=== PATIENT | male | born 1995 | race Caucasian/White ===

== ENCOUNTER 2024-04-23 02:07 | Inpatient (IN) | payer OTHER, SELFPAY ==
[2024-04-23] VITALS (10 sets, daily range): BP systolic 136–210; BP diastolic 81–166; PULSE 83–135; RESP 16–22; TEMP 36.4–36.8; O2SAT 96–100; BMI 25.8
--- NOTE | ~2024-04-23 | CT_ITS ---
CLINICAL HISTORY: Change mental status, elevated BP, tackled CT head without contrast Comparison: None Findings: No intra-axial mass, midline shift, hydrocephalus, or acute hemorrhage. No significant atrophy-like change or white matter disease. There is no sinus or mastoid fluid. The orbits are within normal limits. No skull fracture. IMPRESSION: 1. No acute intracranial findings. This document has been electronically signed by: Jax Elmore MD on 04/23/2024 05:32:48
--- NOTE | ~2024-04-23 | CT_ITS ---
CLINICAL HISTORY: Fall, neck pain, R O fracture CT cervical spine without contrast Comparison: None Findings: Normal vertebral body alignment. No significant degenerative change. No acute fractures or dislocations. Visualized intracranial contents are unremarkable. No cervical fluid collections or masses. Lung apices are clear. IMPRESSION: No acute findings. This document has been electronically signed by: Jax Elmore MD on 04/23/2024 05:35:59
--- NOTE | 2024-04-23 02:34 | ED_ITS ---
HPI - Neuro Symptoms/Deficit General Chief Complaint: Psychiatric Symptoms Stated Complaint: HTN & crisis, Asperger's and Aniexty PD-PC Time Seen by Provider: 04/23/24 02:33 Source: patient Mode of arrival: EMS Limitations: other (Pressured , disorganized speech, flight of ideas) History of Present Illness ED Provider: Dr. Bill Munoz HPI Narrative: 28-year-old male with history of Asperger's and anxiety who was brought to emergency department by ambulance on a Section 12. The patient has very disorganized and paranoid speech. He has flight of ideas. He does not answer questions directly. The following information was obtained from the Section 12 filled out by police magistrate at the patient's home. ?Has not slept in 5 days, out of touch with reality, destructive around house, triggered by , while outside of baseline behavior according to mom. Jumped on top of car when ambulance came? The patient told me that he has been hospitalized for psychiatric reasons in the past but can not tell me where he was hospitalized. Patient states that he was tackled by the police and that is how he got the abrasions to his lower extremities. He was not certain if he hit his head. He does not know when he got his last tetanus shot Related Data Allergies Allergy/AdvReac Type Severity Reaction Status Date / Time sumatriptan [From IMITREX] AdvReac Intermediate SEROTONIN Verified 04/23/24 02:39 SYNDROME Review of Systems 2 Review of Systems: Yes Unobtainable due to mental condition PMFSH Social History Social History Alcohol intake: never Smoked in Last 30 Days: No Use of substances other than those prescribed or required for medical reasons: No Advance Directives: No Advance Directives Information Provided: Yes Physical Exam 2 Vital Signs: Vital Signs: Last Vital Signs Temp 98.2 F 04/23/24 02:23 Pulse 101 H 04/23/24 04:00 Resp 20 04/23/24 05:18 BP 150/81 H 04/23/24 05:18 Pulse Ox 100 04/23/24 05:18 O2 Del Method Room Air 04/23/24 05:18 BMI result Body Mass Index 25.8 Vital signs revealed an elevated blood pressure of 205/109, elevated heart rate of 112. Exam: General: Awake, alert, agitated, pressured speech, paranoid ideation, Head: Normocephalic, atraumatic EENT: PERRL, Lids normal, sclera normal, conjunctiva normal, nose normal , ears normal, throat without erythema or exudates Neck: Supple, no adenopathy Lung: breath sounds symmetric, no wheezing, rales or rhonchi Chest: symmetric movement, nontender Heart: Tachycardia with regular rhythm, normal S1, S2 no murmurs or rubs Abdomen: soft, non-tender, nondistended, normal bowel sounds Back: no vertebral tenderness, no CVAT Extremities: no deformities, patient has a abrasions and bruising on his knees he was he was suspect happened from him jumping on a car when the ambulance in the police arrived at his home. He moves all extremities symmetrically Neuro: Awake, oriented to person, cranial nerves 2-12 intact, strength 5/5 symmetric Medications Administered Discontinued Medications Generic Name Dose Route Start Last Admin Trade Name Freq PRN Reason Stop Dose Admin Bacitracin 1 appl 04/23/24 03:34 04/23/24 03:44 Bacitracin Oint 0.9 Gm Packet TOPICAL 04/23/24 03:35 1 appl ONCE ONE Administration Protocol Diphenhydramine HCl 25 mg 04/23/24 08:33 04/23/24 08:59 Diphenhydramine Hcl 50 Mg/Ml Vial IVPUSH 04/23/24 08:34 25 mg ONCE ONE Administration Haloperidol Lactate 5 mg 04/23/24 08:33 04/23/24 09:00 Haloperidol Lactate 5 Mg/Ml Vial IVPUSH 04/23/24 08:34 5 mg STAT STA Administration Lorazepam 2 mg 04/23/24 03:25 04/23/24 03:43 Lorazepam 1 Mg Tablet PO 04/23/24 03:26 1 mg ONCE STA Administration Lorazepam 1 mg 04/23/24 03:46 04/23/24 05:18 Lorazepam 1 Mg Tablet PO 04/23/24 03:47 Not Given ONCE ONE Lorazepam 2 mg 04/23/24 08:34 04/23/24 09:00 Lorazepam 2 Mg/Ml Vial IVPUSH 04/23/24 08:35 2 mg ONCE ONE Administration Medical Decision Making Medical Decision Making MDM Narrative: 28-year-old male with history of Asperger's and anxiety who was brought to emergency department by ambulance on a Section [address] magistrate at the scene. Patient has paranoid ideation, flight of ideas, pressured speech and difficult to get him to answer any questions. Following was obtained from the Section 12:?Has not slept in 5 days, out of touch with reality, destructive around house, triggered by , while outside of baseline behavior according to mom. Jumped on top of car when ambulance came?. Patient was hypertensive on presentation but I suspect that this is more due to anxiety. Differential diagnosis: ?Includes but is not limited to skull fracture, intracranial bleed, PRES syndrome since psychosis, anxiety, paranoid ideation, severe insomnia, drug use disorder, alcohol use disorder, electrolyte abnormalities, anemia Following evaluation was ordered: CBC, CMP, drug screen urine, ethanol, acetaminophen, salicylate, magnesium, TSH with reflex T4, CT scan of the head and cervical spine Patient was initially treated with the following: Ativan 1 mg orally Course: 08:35 My interpretation patient's laboratory evaluation is as follows: CBC was normal. CMP was normal except for an elevated AST and ALT of 109 and 63. TSH was normal. Salicylate and acetaminophen were below detectable limits. Alcohol was below detectable limits. Urine tox screen is pending collection. The patient did take Ativan 1 mg orally and this did improve his blood pressure. The patient however has refused any further treatment. At this time I think that the patient requires either IV or IM medications to control his agitation and his anxiety. I did order IV insertion, Haldol 5 mg IV, Ativan 2 mg IV and Benadryl 25 mg IV. At this time, the patient can not be medically cleared until we can control his blood pressure. At the end of my shift, the patient's care was turned over to my colleague, . Admission/Observation Consideration of admission/observation: Escalation of care including admission/observation considered (Yes) Lab Data 04/23/24 03:58 04/23/24 03:58 Labs: Lab Results 04/23/24 Range/Units 03:58 WBC 10.0 (4.8-10.8) X10*3/uL RBC 5.42 (4.60-5.80) X10*6/uL Hgb 15.4 (14.0-18.0) g/dl Hct 45.4 (42.0-52.0) % MCV 83.8 (80.0-98.0) fL MCH 28.4 (27.0-33.0) pg MCHC 33.9 (31.0-36.0) g/dl RDW 13.5 (11.0-16.0) % Plt Count 258 (160-400) X10*3/uL MPV 11.8 (9.4-12.4) fL Immature Gran % (Auto) 0.4 (0.0-0.4) % Neut % (Auto) 79.0 H (45-73) % Lymph % (Auto) 13.3 L (20-40) % [place] % (Auto) 6.3 (2-11) % Eos % (Auto) 0.4 (0-4) % Baso % (Auto) 0.6 (0-2) % Lymph # (Auto) 1.3 (1.2-4.9) X10*3/uL [place] # (Auto) 0.6 (0.1-1.2) X10*3/uL Eos # (Auto) 0.0 (0.0-0.4) X10*3/uL Baso # (Auto) 0.1 (0.0-0.2) X10*3/uL Abs Immat Gran (auto) 0.04 H (0.00-0.03) X10*3/uL Absolute Neuts (auto) 7.9 (2.0-8.3) x10*3/uL Absolute Nucleated RBC 0.000 (0.0-0.012) X10*3/uL Nucleated RBC % (auto) 0.0 (0.0-0.2) /100WBC Sodium 142 (135-145) mmol/L Potassium 3.4 (3.3-5.1) mmol/L Chloride 103 (96-108) mmol/L Carbon Dioxide 24 (22-29) mmol/L Anion Gap 18 (12-20) BUN 11 (9-16) mg/dL Creatinine 0.85 (0.5-1.4) mg/dL Estim Creat Clear Calc 143.2 Estimated GFR > 60 Random Glucose 97 (60-115) mg/dL Calcium 9.3 (8.4-10.2) mg/dL Magnesium 1.9 (1.6-2.6) mg/dL Total Bilirubin 0.8 (0.0-1.0) mg/dL AST 109 H (5-37) U/L ALT 63 H (0-40) U/L Alkaline Phosphatase 74 (39-117) U/L Total Protein 7.9 (6.5-8.0) g/dL Albumin 4.7 (3.5-5.0) g/dL TSH 1.04 (0.32-4.0) uIU/mL Salicylates < 5.0 L (15-30) mg/dL Acetaminophen < 3 (<30) mcg/mL Ethyl Alcohol < 10 mg/dL Discharge Plan Discharge Clinical Impression: Acute psychosis, Paranoid ideation, Hypertension Patient Disposition: Still a Patient Interventions: Paul-Suicide Risk Severity Scale Last Done: 04/23/24 02:48 Print Language: Luxembourgish
--- OUTSIDE RECORDS SUMMARY | 2024-04-23 03:12 | XMS_ITS | Data Portability ---
Author Organization [facility], [facility] Address [address] [place] [address] Assessment Encounter Date Assessment Date Assessment LastModified by Organization Details LastModified Time 10/18/2016 10/18/2016 Consultation [facility] Dr. Browne. Will get labs, CBC, CMP, CRP, TSH and Lyme. Will get Abdominal X-ray. If normal, will recommend Fleet's enema pending labs. Patient agrees with plan. [email or web address] Not available 10/18/2016 12:13:10 10/20/2017 10/20/2017 Encouraged healt hy diet and regular exercise. Not available 10/20/2017 10:29:36 07/26/2019 07/26/2019 Patient agreed t o this visit via phone or secure telehealth platform due to the COVID -19 pandemic. Patient understands this is a scheduled visit and the usual procedures with regard to billing and confidentiality apply. Patient was notified that the provider location is [facility] Patient location: home During the visit the patient? s medical history and medical record were reviewed. The patient was notified to call our office for worsening or urgent symptoms. Not available 07/26/2019 11:22:08 09/26/2019 09/26/2019 Patient agreed t o this visit via phone or secure telehealth platform due to the COVID -19 pandemic. Patient understands this is a scheduled visit and the usual procedures with regard to billing and confidentiality apply. Patient was notified that the provider location is [facility] Patient location: home During the visit the patient? s medical history and medical record were reviewed. The patient was notified to call our office for worsening or urgent symptoms. video Not available 09/26/2019 09:24:56 Plan of Treatment Reminders Order Date Submit Date Provider Last Modified By Organization Details Last Modified Time Details Appointments None recorded. Lab CBC 2016 017 [facility], [address] [place] [address], [address], 7 09:42:11 lyme disease igg+igm Ab, serum 2016 017 [facility], [address] [place] [address], [address], 7 16:30:14 CMP, serum or plasma 2016 017 [facility], [address] [place] [address], [address], 7 09:18:55 C-reactive protein, quantitati ve, serum or plasma 2016 017 [facility], [address] [place] [address], [address], 7 09:18:56 RPR (rapid plasma reagin), serum 2017 018 [facility], [address] [place] [address], [address], 8 11:32:48 hepatitis C virus Ab, serum 2017 018 [facility], [address] [place] [address], [address], 8 03:27:24 HBsAg (hepatitis B surface Ag), serum 2017 018 [facility], [address] [place] [address], [address], 8 03:27:26 HIV (1+2) antibodies , EIA, serum, reflex HIV-1 western blot (WB) 2017 018 [facility], [address] [place] [address], [address], 8 03:27:27 CT + NG DNA, PCR, unspecifie d specimen 2017 018 [facility], [address] [facility], [place], [address], 8 14:18:01 Referral physical therapist referral 2017 018 [email or web address] [facility] [place] [facility] [address], [address], [place], [address], 9 16:00:18 Procedures None recorded. Surgeries None recorded. Imaging XR, abdomen - New onset of acute constipati on x 2 weeks 2016 017 [facility] ([facility]), [address], [place], [address], 7 13:16:40 Medication Orders prazosin 1 mg capsule 2019 020 [facility]FACE [id number], [address] [place], [address], 0 11:29:26 venlafaxin e ER 37.5 mg capsule,ex tended release 24 hr 2019 020 INTERFACE [id number], [address] [place], [address], 0 11:29:26 cyclobenza germán 5 mg tablet 2019 020 INTERFACE [id number], [address] [place], [address], 0 09:28:13 lorazepam 1 mg tablet 2019 020 INTERFACE [id number], [address] [place], [address], 0 09:28:15 prazosin 1 mg capsule 2019 020 INTERFACE [id number], [address] [place], [address], 0 09:28:13 Patient TargetsNo targets recorded. Patient Instructions Encounter Date Encounter Id Patient Instructions Last Modified By Organization Details Last Modified Time 10/20/2017 [id number] Well Visit, Ages 18 to 65: Care Instructions [email or web address] Not available 10/20/2017 10:32:41 Reason for Referral Physical Therapist Referral for Low back pain low back pain and neck pain. Please eval and treat. Referring Physician: Michelle Bauer, Family Medicine, Encounter Date: 10/03/2017 Results Created Date Observation Date Name Description Value Unit Range Abnormal Flag Note LastModifiedBy Organization Detail LastModifiedTime 10/19/19 17 10/19/2016 CMP, serum or plasm a glucose 100 mg/dL 70-100 Not Available [address], [address], 10/19/2016 09:18:55 10/19/19 17 10/19/2016 CMP, serum or plasm a BUN 5 mg/dL 7-18 low Not Available [address], [address], 10/19/2016 09:18:55 10/19/19 17 10/19/2016 CMP, serum or plasm a creatinine 1.1 mg/dL 0.8-1. 3 Not Available [address], [address], 10/19/2016 09:18:55 10/19/19 17 10/19/2016 CMP, serum or plasm a B/C 4.5 ratio Not Available [address], [address], 10/19/2016 09:18:55 10/19/1910/19/2016 CMP, serum or plasm a GFR -non 90.7 mL/mi n Recom soniya d GFR by the Natio nal Kidne y Found ation >60 mL/mi n/1.7 3m2 - Destiny l <60 mL/mi n/1.7 3m2 - Chron ic Kidne y Disea se <15 mL/mi n/1.7 3m2 - Kidne y Failu re Not Available [address], [address], 10/19/2016 09:18:55 10/19/1910/19/2016 CMP, serum or plasm a GFR - if 109.8 mL/mi n For Afric an Ameri can patie nts: Resul ts Multi plied by 1.21 Not Available [address], [address], 10/19/2016 09:18:55 10/19/1910/19/2016 CMP, serum or plasm a sodium 142 mmol/ L 136-14 5 Not Available [address], [address], 10/19/2016 09:18:55 10/19/1910/19/2016 CMP, serum or plasm a potassium 4.0 mmol/ L 3.5-5. 1 Not Available [address], [address], 10/19/2016 09:18:55 10/19/1910/19/2016 CMP, serum or plasm a chloride 104 mmol/ L 96-107 Not Available [address], [address], 10/19/2016 09:18:55 10/19/1910/19/2016 CMP, serum or plasm a anion gap 9.2 5.0-15 .0 Not Available [address], [address], 10/19/2016 09:18:55 10/19/1910/19/2016 CMP, serum or plasm a CO2 29 mmol/ L 21-32 Not Available [address], [address], 10/19/2016 09:18:55 10/19/1910/19/2016 CMP, serum or plasm a calcium 9.0 mg/dL 8.5-10 .3 Not Available [address], [address], 10/19/2016 09:18:55 10/19/1910/19/2016 CMP, serum or plasm a total protein 7.2 g/dL 6.4-8. 2 Not Available [address], [address], 10/19/2016 09:18:55 10/19/1910/19/2016 CMP, serum or plasm a albumin 4.3 g/dL 3.4-5. 0 Not Available [address], [address], 10/19/2016 09:18:55 10/19/1910/19/2016 CMP, serum or plasm a globulin 2.9 g/dL Not Available [address], [address], 10/19/2016 09:18:55 10/19/1910/19/2016 CMP, serum or plasm a A/G 1.5 ratio 0.8-2. 0 Not Available [address], [address], 10/19/2016 09:18:55 10/19/1910/19/2016 CMP, serum or plasm a total bilirubin 0.40 mg/dL 0.00-1 .00 Not Available [address], [address], 10/19/2016 09:18:55 10/19/1910/19/2016 CMP, serum or plasm a AST 24 U/L 15-37 Not Available [address], [address], 10/19/2016 09:18:55 10/19/1910/19/2016 CMP, serum or plasm a ALT 31 U/L 30-65 Not Available [address], [address], 10/19/2016 09:18:55 10/19/1910/19/2016 CMP, serum or plasm a alk. phos. 66 U/L 50-136 Not Available [address], [address], 10/19/2016 09:18:55 10/19/1910/19/2016 C-corey ctive prote in, quant itati ve, serum or plasm a C-reactive protein -quant 6.4 mg/L 0.0-9. 0 Not Available [address], [address], 10/19/2016 09:18:56 10/19/1910/19/2016 CBC WBC 5.0 K/? ? ?L 4.2-9. 1 Not Available [address], [address], 10/19/2016 09:42:11 10/19/1910/19/2016 CBC RBC 5.31 M/? ? ?L 4.63-6 .08 Not Available [address], [address], 10/19/2016 09:42:11 10/19/1910/19/2016 CBC HGB 15.3 g/dL 13.7-1 7.5 Not Available [address], [address], 10/19/2016 09:42:11 10/19/1910/19/2016 CBC HCT 47.4 % 40.1-5 1.0 Not Available [address], [address], 10/19/2016 09:42:11 10/19/1910/19/2016 CBC MCV 89.3 ? ? ?L 79.0-9 2.2 Not Available [address], [address], 10/19/2016 09:42:11 10/19/1910/19/2016 CBC MCH 28.8 pg 25.7-3 2.2 Not Available [address], [address], 10/19/2016 09:42:11 10/19/1910/19/2016 CBC MCHC 32.3 g/dL 32.3-3 6.5 Not Available [address], [address], 10/19/2016 09:42:11 10/19/19 17 10/19/2016 CBC plt 208.0 K/? ? ?L 163.0- 337.0 Not Available [address], [address], 10/19/2016 09:42:11 10/19/19 17 10/19/2016 CBC MPV 12.5 9.4-12 .4 high Not Available [address], [address], 10/19/2016 09:42:11 10/19/1910/19/2016 CBC neut% 73.4 % 34.0-6 7.9 high Not Available [address], [address], 10/19/2016 09:42:11 10/19/1910/19/2016 CBC neut# 3.7 1.8-5. 4 Not Available [address], [address], 10/19/2016 09:42:11 10/19/1910/19/2016 CBC lymph % 9.9 % 21.8-5 3.1 low Not Available [address], [address], 10/19/2016 09:42:11 10/19/1910/19/2016 CBC lymph # 0.5 K/? ? ?L 1.3-3. 6 low Not Available [address], [address], 10/19/2016 09:42:11 10/19/1910/19/2016 CBC mono% 13.3 % 5.3-12 .2 high Not Available [address], [address], 10/19/2016 09:42:11 10/19/1910/19/2016 CBC mono# 0.7 0.3-0. 8 Not Available [address], [address], 10/19/2016 09:42:11 10/19/19 17 10/19/2016 CBC eo% 2.8 % 0.8-7. 0 Not Available [address], [address], 10/19/2016 09:42:11 10/19/19 17 10/19/2016 CBC eo# 0.1 0.0-0. 5 Not Available [address], [address], 10/19/2016 09:42:11 10/19/1910/19/2016 CBC baso% 0.6 % 0.2-1. 2 Not Available [address], [address], 10/19/2016 09:42:11 10/19/1910/19/2016 CBC baso# 0.0 0.0-0. 1 Not Available [address], [address], 10/19/2016 09:42:11 10/19/1910/19/2016 CBC RDW-CV 13.9 % 11.6-1 4.4 Not Available [address], [address], 10/19/2016 09:42:11 10/19/1910/19/2016 lyme disea se igg+i gm Ab, serum borrelia burgdorferi Ab 0.20 <0.90 <=0.9 0 - Negat shari 0.91 - 1.09 - Equiv ocal >=1.1 0 - Posit shari Not Available [address], [address], 10/19/2016 16:30:14 10/21/19 18 10/21/2017 hepat itis C virus Ab, serum hepatitis C antibody NON-RE ACTIVE non-re active normal Not Available [facility] [address], [place], [address], 10/21/2017 03:27:24 10/21/19 18 10/21/2017 hepat itis C virus Ab, serum signal to cut-off 0.01 <1.00 normal Not Available [facility] [address], [place], [address], 10/21/2017 03:27:24 10/21/19 18 10/21/2017 HBsAg (hepa titis B surfa ce Ag), serum hepatitis B surface antigen NON-RE ACTIVE non-re active normal Not Available [facility] [address], [place], [address], 10/21/2017 03:27:26 10/21/19 18 10/21/2017 HIV 1+2 Ab + HIV1 p24 Ag, quant itati ve immun oassa y, serum HIV Ag/Ab, 4TH gen NON-RE ACTIVE non-re active normal HIV-1 antig en and HIV-1 /HIV- 2 antib odies were not detec gino. There is no labor atory evide nce of HIV infec tion. PLEAS E NOTE: This infor matio n has been discl osed to you from recor ds whose confi denti ality may be prote cted by state law. If your state requi res such prote ction , then the state law prohi bits you from ary iqbal any furth er discl osure of the infor matio n witho ut the speci fic writt en conse nt of the perso n to whom it perta ins, or as other izaguirre permi tted by law. A gener al autho max ion for the relea se of medic al or other infor matio n is NOT suffi cient for this purpo se. For addit ional infor matio n pleas e refer to http: //edu cattwila n.que stdia gnost ics.c om/fa q/FAQ 106 (This link is being provi ded for infor matio nal/ educa mai l purpo ses only. ) The perfo rmanc e of this assay has not been clini mariela valid ated in patie nts less than 2 years old. Not Available [facility] [address], [place], [address], 10/21/2017 03:27:27 10/21/19 18 10/26/2017 CT + NG DNA, PCR, unspe cifie d speci men N. gonorrhoeae Neg negati ve Not Available [address], [address], 10/26/2017 14:18:01 10/21/19 18 10/26/2017 CT + NG DNA, PCR, unspe cifie d speci men C. trachomatis Neg negati ve Not Available [address], [address], 10/26/2017 14:18:01 10/21/19 18 10/27/2017 RPR (rapi d plasm a reagi n), serum RPR NON-RE ACTIVE nonrea ctive Not Available [address], [address], 10/27/2017 11:32:48 10/19/19 17 10/18/2016 XR, abdom en OBSERV ATION: Supine examin ation of the abdome n 1 view C consti pation The lung bases are clear. The bowel gas patter n is normal withou t eviden ce of signif icant consti pation . The bony struct ures are normal . No dystro phic calcif icatio ns are presen t. Impres valdo: Normal Electr onical ly signed Edgard Garza francisco javier: Joshua [email or web address] [facility] [address], [place], [place], [address], 10/18/2016 13:54:59 Result Notes None recorded. Problems Name Problem SNOMED Code Status Onset Date Resolution Date Notes Provider Name and Address Organization Details Recorded Time Pain in limb 40250732 Completed 01/31/2013 Not Available [facility] 3 02:00:57 Autism spectrum disorder 02201742 Active 2006 Not Available [facility] 1 10:38:59 Major depressive disorder 908821426 Active Not Available [facility] 1 10:38:59 Headache 16729197 Active Not Available [facility] 1 10:38:59 Problem Notes None recorded. Procedures Surgical History None recorded. Imaging Results Imaging Date Name Status LastModified by Organiz ation Details LastModified Time 10/18/2016 XR, abdomen completed [facility] [address], [place], [address], 10/18/2016 13:54:59 Procedure Notes None recorded. Medical Equipment None Reported. Allergies Allergen ID Allergen Name Allergen Category Reaction Reaction Severity Criticality Documentation Date Start Date Code Code System Note Provider Name and Address Organization Details Recorded Time 184842 sumatript an medicatio n Not available Not available Not available 10/08/2014 17075 RxNorm ?sero tonin syndr ome when taken w/ cital opram Bladimir Holloway PA-C [address] [place] [address], [place], [address] [place] [address] Medical [facility] 5 09:26:52 Medications Name Sig Start Date Stop Date Status Note LastModified by Organization Details LastModified Time flulaval quadrival ent 6922-3550 susp active Not Available Not Available Not Available butalbita l/acetami nophen/ca ffeine 50-300-40 mg caps 11/02 completed Not Available Not Available Not Available citalopra m hydrobrom miguel 40 mg tabs 11/02 completed Not Available Not Available Not Available sumatript an succinate 25 mg tabs active Not Available Not Available Not Available bupropion hcl xl 150 mg tb24 active Not Available Not Available Not Available fluoxetin e hcl 20 mg caps active Not Available Not Available Not Available citalopra m hydrobrom miguel 10 mg tabs active Not Available Not Available Not Available citalopra m hydrobrom miguel 20 mg tabs active Not Available Not Available Not Available gabapenti n 300 mg caps 11/02 completed Not Available Not Available Not Available minocycli ne hcl 100 mg caps active Not Available Not Available Not Available fluoxetin e hcl 10 mg caps active Not Available Not Available Not Available quetiapin e fumarate 25 mg tabs active Not Available Not Available Not Available quetiapin e 25 mg tablet Take 1 tablet every day by oral route. active Not Available Not Available No t Available cyclobenz aprine 10 mg tablet 10/20 completed not taking 10/20/17-t t Not Available Not Available Not Available venlafaxi ne ER 37.5 mg capsule,e xtended release 24 hr TAKE 1 CAPSULE BY MOUTH EVERY DAY 2019 active Not Available Not Available Not Avai lable venlafaxi ne ER 75 mg capsule,e xtended release 24 hr Take 1 capsule every day by oral route for 30 days. 07/25 completed Pt stated he stop taking the velafaxi ne 75 mg couple days ago. Due to side effects dry mouth. Stop it on his own. Not Available Not Available Not Available paroxetin e 10 mg tablet Take 1 tablet every day by oral route for 30 days. 12/29 completed Not Available Not Available Not Available citalopra m 40 mg tablet 11/02 completed Not Available Not Available Not Available prazosin 1 mg capsule 1 capsule PO at bedtime 2019 active Not Available Not Available Not Avai lable ondansetr on HCl 8 mg tablet TK 1 T PO D FOR 6 DAYS 10/20 completed not taking 10/20/17-t t Not Available Not Available Not Available sumatript an 25 mg tablet TAKE 1 TABLET (25 MG) BY ORAL ROUTE AFTER ONSET OF MIGRAINE ; MAY REPEAT AFTER 2 HOURS IF HEADACHE RETURNS, NOT TO EXCEED 200MG IN 24HRS 2013 active gave the patient the migraine headache s Not Available Not Available Not Available olanzapin e 5 mg tablet 11/02 completed Not Available Not Available Not Available meloxicam 7.5 mg tablet 10/20 completed not taking 10/20/17-t t Not Available Not Available Not Available citalopra m 20 mg tablet TK 1 T PO QD 10/20 completed not taking 10/20/17-t t Not Available Not Available Not Available lorazepam 0.5 mg tablet TK 1 TO 2 TS PO QD PRA 10/20 completed not taking 10/20/17-t t Not Available Not Available Not Available paroxetin e 20 mg tablet Take 1 tablet every day by oral route for 30 days. 01/16 completed Not Available Not Available Not Available nortripty line 10 mg capsule TK 2 CS PO Q NIGHT 10/20 completed not taking this meds 10/03/17- ttnot taking 10/20/17-t t Not Available Not Available Not Available fluoxetin e 20 mg tablet Take 1 tablet every day by oral route for 30 days. 03/07 completed LAST PHA 11/29/13 LABS 01/31/14 Not Available Not Available Not Available hydroxyzi ne HCl 25 mg tablet TAKE 1 TABLET BY MOUTH THREE TIMES DAILY NEEDED 10/20 completed not taking 10/20/17-t t Not Available Not Available Not Available lorazepam 1 mg tablet TAKE 1 TABLET BY MOUTH EVERY DAY NEEDED FOR ANXIETY active Not Available Not Available No t Available naproxen 500 mg tablet TAKE 1 TABLET BY MOUT 2 TIMES PER DAY NEEDED FOR PAIN FOR 5 DAYS TAKE WITH FOOD. 07/25 completed Not Available Not Available Not Available escitalop luisa 10 mg tablet TAKE 1 TABLET BY MOUTH EVERY DAY 07/25 completed Pt states he stopp taking the escitalo pram 5 and 10 mg back in March. 07/26/19 JI Not Available Not Available Not Available cyclobenz aprine 5 mg tablet TAKE 1 TABLET BY MOUTH EVERY 8 HOURS NEEDED FOR MUSCLE SPASMS active Not Available Not Available No t Available bupropion HCl XL 150 mg 24 hr tablet, extended release Take 1 tablet every day by oral route for 30 days. 01/30 completed Not Available Not Available Not Available escitalop luisa 5 mg tablet 07/25 completed Pt states he stopp taking the escitalo pram 5 and 10 mg back in March. 07/26/19 JI Not Available Not Available Not Available duloxetin e 30 mg capsule,d elayed release TK 1 C PO BID 08/04 completed Not Available Not Available Not Available erythromy demarco 1 tab 2 times a day active Not Available Not Available No t Available minocycli ne 100mg daily active Not Available Not Available No t Available Vitals Date Recorded Body height Body mass index (BMI) Body weight Heart rate Oxygen saturation Oxygen saturation in Arterial blood by Pulse oximetry Body temperature Systolic blood pressure Diastolic blood pressure Provider Name and Address Organization Details Last Updated DateTime 7 179.705 cm 22.5 kg/m2 32604.7 8 g 97 /min 98 % 98 % 98.1 [degF] 128 mm[Hg] 80 mm[Hg] Mago Carnes, [place] [facility] 7 11:26:52 Date Recorded Body height Body mass index (BMI) Body weight Heart rate Systolic blood pressure Diastolic blood pressure Provider Name and Address Organization Details Last Updated DateTime 8 179.705 cm 22.9 kg/m2 89689.5 6 g 88 /min 120 mm[Hg] 90 mm[Hg] Hans [place] Garcia [facility] 8 16:15:04 Date Recorded Body height Body mass index (BMI) Body weight Systolic blood pressure Diastolic blood pressure Provider Name and Address Organization Details Last Updated DateTime 10/20/2017 179.705 cm 23 kg/m2 27792.15 g 124 mm[Hg] 80 mm[Hg] Hans GarciaSHADIA [facility] 8 09:55:30 Social History Question Answer Notes LastModified by Organizat ion Details LastModified Time Tobacco Smoking Status Never Smoker 09/26/19 [facility] [facility] 07/26/2019 10:52:21 What Is Your Level Of Alcohol Consumption? None No Hx Abuse. 0 JI Information not available 11/29/2013 Do You Wear A Helmet When Biking? No Information not available 10/20/2017 What Is Your Level Of Caffeine Consumption? Heavy Information not available 10/20/2017 How Much Tobacco Do You Chew? None Information not available 10/08/2014 What Type Of Diet Are You Following? REGULAR Information not available 01/22/2015 Do You Or Have You Ever Used E-cigarettes Or Vape? 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 No [email or web address] Information not available 10/08/2014 Live Alone Or With Others? With Others Mother/grand mother eri Information not available 12/17/2013 Marital Status Single primo Informatio n not available 11/29/2013 Mosquito Repellent Used Routinely No eri Information not available 01/22/2015 What Was The Date Of Your Most Recent Tobacco Screening? 09/26/2019 09/26/19 ABHIJIT Information not available 09/26/2019 How Many Children Do You Have? 0 [email or web address] Information not available 11/29/2013 Seat Belts Used Routinely Yes eri Information not available 10/08/2014 Are You Sexually Active? No Information not available 10/20/2017 Smoke Alarm In Home Yes eri Information not available 10/08/2014 Do You Or Have You Ever Used Smokeless Tobacco? Never Used Smokeless Tobacco 09/26/19 ABHIJIT Information not available 07/26/2019 How Much Tobacco Do You Smoke? No 09/26/19 ABHIJIT Information not available 07/26/2019 What Types Of Sporting Activities Do You Participate In? No Information not available 10/20/2017 General Stress Level Medium Information not available 10/20/2017 Do You Use Sunscreen Routinely? No Information not available 10/20/2017 How Many Years Have You Smoked Tobacco? 0 09/26/19 ABHIJIT [email or web address] Information not available 07/26/2019 Sex: Unknown Functional Status None recorded. Mental Status None recorded. Family History Relationship Description Onset Age of this Age Resolved Age Notes LastModified by Organization Details LastModified Time Maternal Grandmother Degenerative disorder of macula Not available 2017 10:03:46 Notes:MOM: 40s: celiac MGM c eliac DAD: doesn't know him SIS: 0 BRO: 0 DIANE: 0 SON: 0 Medical History No medical history recorded. Immunizations Vaccine Type Date Status Note Provider Alex cintron and Address Organization Details Recorded Time HPV, quadrivalent 4 completed Not Available [facility] 03/31/2019 02:39:32 influenza, seasonal, intradermal, preservative free 4 completed Not Available [facility] 03/31/2019 02:19:20 HPV, quadrivalent 5 completed Not Available [facility] 03/31/2019 02:20:14 meningococcal MCV4P 5 completed Not Available [facility] 03/31/2019 02:29:50 Hep A, adult 6 completed Not Available [facility] 03/31/2019 02:20:39 HPV, unspecified formulation 3 completed Rosemary Buschini, PATIENT SAFETY ATTENDANT null, [facility] 11/29/2013 16:35:35 Tdap 9 completed Rosemary Buschini, PATIENT SAFETY ATTENDANT null, [facility] 11/29/2013 16:40:36 Hep B, unspecified formulation 7 completed Rosemary Buschini, PATIENT SAFETY ATTENDANT null, [facility] 11/29/2013 17:08:39 Hib, unspecified formulation 8 completed Rosemary Buschini, PATIENT SAFETY ATTENDANT null, [facility] 11/29/2013 17:08:39 DTaP 8 completed Rosemary Buschini, PATIENT SAFETY ATTENDANT null, [facility] 11/29/2013 17:08:39 Hep B, unspecified formulation 8 completed Rosemary Buschini, PATIENT SAFETY ATTENDANT null, [facility] 11/29/2013 17:08:39 Hib, unspecified formulation 7 completed Rosemary Buschini, PATIENT SAFETY ATTENDANT null, [facility] 11/29/2013 17:08:39 DTaP 7 completed Rosemary Buschini, PATIENT SAFETY ATTENDANT null, [facility] 11/29/2013 17:08:39 Hib, unspecified formulation 7 completed Rosemary Buschini, PATIENT SAFETY ATTENDANT null, [facility] 11/29/2013 17:08:39 DTaP 1 completed Rosemary Buschini, PATIENT SAFETY ATTENDANT null, [facility] 11/29/2013 17:08:39 DTaP 7 completed Rosemary Buschini, PATIENT SAFETY ATTENDANT null, [facility] 11/29/2013 17:08:39 DTaP 7 completed Rosemary Buschini, PATIENT SAFETY ATTENDANT null, [facility] 11/29/2013 17:08:39 Hib, unspecified formulation 7 completed Rosemary Bustiffanyi, PATIENT SAFETY ATTENDANT null, [facility] 11/29/2013 17:08:39 Hep B, unspecified formulation 7 completed Rosemary Buschini, PATIENT SAFETY ATTENDANT null, [facility] 11/29/2013 17:08:39 IPV 1 completed Rosemary Bustiffanyi, PATIENT SAFETY ATTENDANT null, [facility] 11/29/2013 17:17:15 varicella 8 completed Rosemary Buschini, PATIENT SAFETY ATTENDANT null, [facility] 11/29/2013 17:17:15 influenza, unspecified formulation 3 completed Rosemary Bustiffanyi, PATIENT SAFETY ATTENDANT null, [facility] 11/29/2013 17:17:15 meningococcal MCV4, unspecified formulation 9 completed Rosemary Bustiffanyi, PATIENT SAFETY ATTENDANT null, [facility] 11/29/2013 17:17:15 MMR 2 completed Rosemary Buschini, PATIENT SAFETY ATTENDANT null, [facility] 11/29/2013 17:17:15 varicella 7 completed Rosemary Bustiffanyi, PATIENT SAFETY ATTENDANT null, [facility] 11/29/2013 17:17:15 influenza, unspecified formulation 1 completed Rosemary Bustiffanyi, PATIENT SAFETY ATTENDANT null, [facility] 11/29/2013 17:17:15 MMR 8 completed Rosemary Bustiffanyi, PATIENT SAFETY ATTENDANT null, [facility] 11/29/2013 17:17:15 IPV 7 completed Rosemary Bustiffanyi, PATIENT SAFETY ATTENDANT null, [facility] 11/29/2013 17:17:15 influenza, unspecified formulation 0 completed Rosemary Bustiffanyi, PATIENT SAFETY ATTENDANT null, [facility] 11/29/2013 17:17:15 Influenza, split virus, quadrivalent, PF 3 completed Rosemary Bustiffanyi, PATIENT SAFETY ATTENDANT null, [facility] 11/29/2013 17:17:15 OPV 8 completed Rosemary Buschini, PATIENT SAFETY ATTENDANT null, [facility] 11/29/2013 17:17:15 IPV 7 completed Rosemary Rosenbaum LPN null, [facility] 11/29/2013 17:17:15 Influenza, split virus, quadrivalent, preservative 5 completed Not Available [facility] 04/14/2019 02:10:39 COVID-19, mRNA, LNP-S, PF, 30 mcg/0.3 mL dose 1 completed Mariana Auguste CMA null, [facility] 07/14/2020 16:02:20 COVID-19, mRNA, LNP-S, PF, 30 mcg/0.3 mL dose 1 completed SHADIA Sanchez, [facility] 07/14/2020 16:09:20 Past Encounters Encounter ID Performer Location Encounter Start Date Encounter Closed Date Diagnosis/Indication Diagnosis SNOMED-CT Code Diagnosis ICD10 Code Diagnosis Note [id number] LAB - [facility] [address] [facility] [place] [address] 03/10/2007 14:23:20 03/10/2007 14:23:26 [id number] Radiology , [facility] [address] [facility] [place] [id number] 12/02/2008 09:03:53 12/04/2008 12:30:07 [id number] Telma Alegre RN , [facility], OFFICE [address] [place] [address] 11/29/2013 14:38:29 11/29/2013 16:44:36 Well child [id number] Counseling 258048813 Asperger's disorder 14459068 very functional Celiac disease 639108140 seems stable with diet Major depr essive disorder 337031534 No SI. Feels like 1-2 times a week feels a bit better, but not really rose marie.Tria l paxil. Informed risk SI with meds. Will fu 2 wks. Tick bite 53994283 Active or passive immunization 523867721 [id number] Kelly Dennis MA , [facility], [address] [place] [address] 12/17/2013 15:38:52 12/17/2013 16:02:13 Major depressive disorder 775848731 Feels ok for short while ,but wears off. No SE. Increase dose and fu 1 month No SI [id number] Danette Jolley MA , [facility], [address] [place] [address] 12/29/2013 14:19:43 12/29/2013 15:31:46 Migraine without aura 74322303 likley migraines, discussed heagache diary, stress reduction, exercise , sleep and food triggers, will try imitrex and can discuss prophalaxi s with Bladimir Holloway his pcp [id number] Telma Alegre RN , [facility], OFF[address] [place] [address] 12/31/2013 17:07:38 12/31/2013 17:45:17 Influenza vaccine needed 1574163073 106 Major depr essive disorder 768827391 Paxil not much help on lower dose and higher dose had adverse SE. Try effexor to see if it can also give some help ww/ ALARCON. If not covered, would change to bupropion No SI Migraine without aura 28070681 see above [id number] Whit Brizuela , [facility], OFF[address] [place] [address] 06/26/2014 16:05:17 06/26/2014 16:43:37 Epistaxis 63626165 no other bleed likely posterior on right [id number] , [facility], OFF[address] [place] [address] 10/08/2014 08:48:05 10/08/2014 09:34:32 Palpitations 14469844 Prob serotonin syndrome, resolved now. Imitrex added to allergies list in this context Migraine without aura 28326309 to neuro for eval of other options besides triptans. [id number] Joanne Self , [facility], [address] [place] [address] 01/22/2015 13:43:12 01/22/2015 14:17:43 Active or passive immunization 364368910 Z23 Administra tion of bacterial vaccine 449455670 Z23 Adult heal th examination 583641130 Z00.00 Benign exam Depressive disorder 3548 9007 F32.9 Stable on meds/thera py Headache 62725448 R51 Followed by neuro. [id number] Bladimir Holloway PA-C , [facility], OFF[address] [place] [address] 11/03/2015 10:25:52 11/06/2015 14:31:39 Active or passive immunization 005863317 Z23 Major depr essive disorder 152514035 F32.9 Seems stable now s/p suicide attempt. 2x/week therapy and psychiatri st ~1x/month Tachycardia 7290506 R00. 0 to see cards in 2 days. No tachycardi a now. [id number] Bladimir Holloway PA-C , [facility], OFF[address] [place] [address] 08/04/2016 08:23:04 08/04/2016 09:02:37 Adult health examination 861417397 Z00.00 Benign exam Counseling 308304225 Z71 .9 Headache 00218224 R51 Tries to avoid triggers Autism spe ctrum disorder 82179224 F84.9 part of care Major depr essive disorder 315000478 F32.9 Seems stable now s/p suicide attempt.Do es have depression , but no SI. Celexa helped in past. Therapy no help. Will restart celexa and fu 2 wks, to make sure no suicidalit y developing [id number] Bladimir Holloway PA-C , [facility], OFFICE [address] [place] [address] 08/18/2016 14:57:16 08/18/2016 15:30:31 Major depressive disorder 366743023 F32.9 Seems stable now s/p suicide attempt.Do es have depression , but no SI. Celexa helped in past. Therapy no help. Will restart celexa and fu 2 wks, to make sure no suicidalit y developing [id number] Quin Contreras , [facility], OFF[address] [place] [address] 10/18/2016 11:19:53 10/18/2016 11:54:29 Constipation 59239767 K59.00 Fever 213738486 R50.9 [id number] Ryan Wright MD , [facility], OFF[address] [place] [address] 10/03/2017 15:52:19 10/03/2017 16:41:15 Neck pain 95798108 M54.2 Moderate trapezius spasm bilaterall y. Likely due to long hrs on the computer/h igh stress/poo r posture. Continue flexeril and meloxicam as prescribed . Reviewed R/B/A of meds again with patient. Discussed heat, stretching . Will refer to PT- needs something close to home. Low back pain 993067407 M54.5 Low back and neck pain x several months. MSK in nature. Likely due to long hrs on the computer/h igh stress/poo r posture. Continue flexeril and meloxicam as prescribed . Reviewed R/B/A of meds again with patient. Discussed heat, stretching . Will refer to PT- needs something close to home. [id number] Ryan Wright MD , [facility], [address] [place] [address] 10/20/2017 09:43:01 10/20/2017 10:19:54 Adult health examination 851894228 Z00.00 see Risk Assessment and Lifestyle Change Counseling section above Counseling 352661677 Z71 .9 Depression screening 171 498924 Z13.89 depression screening tool administer ed, entered into emr, scored and discussed, time greater than 7.5 minutes Venereal d isease screening 788165219 Z11.3 STD screening done at his request. Asymptomat ic. F/u pending results. Encouraged safe sex practices. Major depr essive disorder 033085145 F32.9 Mood has been stable. Followed by Dr. Martinez. Currently on lexapro 5 mg, prazosin 1 mg and lorazepam 1 mg PRN, which he uses rarely. Neck pain 23141699 M54.2 Much improved with PT/stretch es. Continue PT through end of the month as scheduled. Home stretches and posture. Also discussed regular exercise. [id number] ERIKA Kee, [facility], [address] [place] [address] 07/26/2019 07:56:33 07/27/2019 09:35:27 Major depressive disorder 212281861 F32.9 Mood has been stable. Followed by Harley Ramirez. Currently on venlafaxin e ER 37.5 mg daily and lorazepam 1 mg PRN, which he uses a few times a week. I have agreed to Rx his meds. Restart prazosin. F/u in 1 month, sooner as needed. [id number] Michelle Bauer PA-C , [facility], OFF[address] [place], [place] [address] 09/26/2019 09:05:13 09/27/2019 13:13:49 Major depressive disorder 861733070 F32.9 Mood has been stable. Previously followed by Harley Ramirez. Continue venlafaxin e ER 37.5 mg daily and lorazepam 1 mg PRN (using about twice a week). Continue prazosin at bedtime. F/u for wellness visit. Rx renewed. Muscle spa sm of head and/or neck 11657497 M62.838 Trial of short course of muscle relaxer. Reviewed R/B/A of meds. Advised not to take with lorazepam. Continue heat and stretching . Take breaks from the computer during the day. Work on stress reduction. Declines PT at this time. Insomnia 691512405 G47.0 0 recent issues with insomnia. Discussed bedtime routine, regular exercise and stress reduction techniques . He has tried benadryl and melatonin in the past without improvemen t. I am reluctant to Rx an additional sleep aid with the above meds. Follow up if no improvemen t in 2 weeks. Health Concerns Section Related Observation LastModified by Organization Detai ls LastModified Time None Recorded Concern Status LastModified by Organization Details LastModified Time None Recorded Advance Directives Directive None Recorded Payers Encounter Date Sequence Insurance Name Policy Number Policy Torres Covered Member ID Torres Member ID Guarantor Name 10/18/2016 1 [facility] [id number] Oksana Grimes [id number] Alex Cornelio 10/03/2017 1 [facility] [id number] Alex Cornelio [id number] Alexabraham Grimes 10/20/2017 1 [facility] ([facility] [id number] Alex Cornelio [id number] Alex Cornelio 07/26/2019 1 [facility] ([facility] [id number] Alex Cornelio [id number] Alex Cornelio 09/26/[address] [place] [address]) [id number] Alex Cornelio [id number] Alex Cornelio Notes Date Note Type Note Provider Name and Address Organization Details Recorded Time 10/18/2016 text/html Patient enters clinic today c/o constipation and nausea x 2 weeks, then last night had fever, chills, neck and back pain. Took acetaminophen last night, no fever yet today. Has tried Miralax x 2 and colace without benefit. Has been straining to produce only rabbit pellets at best. Now has some lower abdominal pain. No previous h/o constipation, typically has BMs every day or every other day. No change in diet. No recent travel. No h/o tick bites. No respiratory symptoms except mild ST today. Ary Lambert NP [address] [place], [address], [facility] 10/18/2016 12:14:02 10/03/2017 text/html Here today with concerns of neck and back pain. Went to over the weekend. Was start on meloxicam and flexeril. Still having pain. Has noticed some improvement though. Back and neck pain started 3-6 months ago. 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 Has gotten progressively worse over the past several months, which is what prompted the visit. Sleeping better now.No regular exercise.not a good ergonomic set up at work or home. going to change his home set up. not willing to exercise.Plays a lot of video games.No drowsiness with muscle relaxer.Occasional alcohol, none with meds. Sees psych- Dr. Ramirez. going well.No numbness/tingling or weakness. 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 Ryan Wright MD [address] [place], [phone], [facility] 10/03/2017 17:02:16 10/20/2017 text/html Physical Exam/MaleReported bypatient.Lennox hampton is here for a Wellness Visit. He describes his health status as good. Patient's health is the same as last year.Notes:Here today for PE. Overall doing well. Neck and back is much better. Doing PT twice a week. Better ergonomic set up at work/homeSleeping well.Eating fair diet.Eye exams yearly.Dental exams irregularly. Risk Assessment and Lifestyle Change Counseling 18-50Reported bypatient.Coronary Artery Disease Risk Assesment:No Family history of coronary artery disease; No personal history of diabetes; No history of peripheral vascular disease, AAA, or carotid disease; No personal history of coronary artery disease Breast Cancer Risk Assessment:No family history of breast cancer; No history of breast cancer or dcis Lung Cancer Risk Assessment:Never smoked; No asbestos exposure Cognitive/Behaviora l Risk Assessment:No personal history of mental illness; No family history of mental illness Safety Risk Assessment:No evidence of abuse/neglect Diet:Counseled about eating a diet low in trans and saturated fats and high in fiber, fruits and vegetables Exercise counseling:Discusse d the importance of daily physical activity Safety:Counseled about safer sexual practice Ryan Wright MD [address] [place] [address], [phone], [facility] 10/21/2017 11:23:34 07/26/2019 text/html Krystyna.me visit to day in follow up. He has been followed by Harley Ramirez. Requesting that this PCP take over his meds in part due to cost of specialist co-pay and he feels things have been stable. Currently on venlafaxine ER 37.5 mg daily. Had briefly tried to increase dose to 75 mg daily but had dry mouth and ultimately decided to go back to 37.5 mg dose. Feels he is doing well on current regimen. Also uses lorazepam 1 mg PRN- using it several times a week. Usually due to stress/anxiety related to work. Requesting to resume the prazosin 1 mg at bedtime. Notes he previously took in during the day and it made him too drowsy. Thinks it was helpful and would like to resume at bedtime.Mood stable. Michelle Bauer PA-C [address] [place], [address], [facility] 07/26/2019 13:30:55 09/26/2019 text/html Video visit toda y in follow up. Previously followed by Harley Ramirez. I am now taking over prescribing his meds. Currently on venlafaxine ER 37.5 mg daily, feels that is working well. We added prazosin at bedtime at his last visit. Feels that is helping. Using lorazepam about twice a week now. Feels he needs it less since adding the prazosin. Requesting refill today. Has been having trouble sleeping for several months. Difficulty falling asleep and staying asleep. Avg4-6 hrs/night. Gets some exercise during the day. Has been stressed recently. Tried melatonin and benadryl in the past. Having some neck pain/knots in his neckDoing some heat and exercises. Declines PT.Works on a computer all day and increased stress. Michelle Bauer PA-C [address] [place] [address], [phone], [facility] 09/26/2019 09:28:27
[2024-04-23] MEDS: LORazepam 1 MG TABLET 2 MG PO (03:43)
[2024-04-23] MEDS: Bacitracin Oint 0.9 GM PACKET 1 APPL TOPICAL (03:44)
--- NOTE | 2024-04-23 03:47 | MHC.EDTECH ---
[facility] for [facility]
--- NOTE | 2024-04-23 03:52 | PC.NURSE ---
Pt hyperverbal, disorganized thoughts only agreeable to taking 1mg of ativan PO prescribed by provider. Dr. Munoz made aware.
[2024-04-23 04:02] LABS: MANUAL DIFF FLAG NO
[2024-04-23 04:03] LABS: Basophils Absolute Auto 0.1 X10*3/uL (0.0-0.2); Basophils Percent Auto 0.6 % (0-2); Eosinophils Percent Auto 0.4 % (0-4); Hematocrit 45.4 % (42.0-52.0); Hemoglobin 15.4 g/dl (14.0-18.0); Imm Gran Abs Auto 0.04 X10*3/uL (0.00-0.03); Imm Gran Pct Auto 0.4 % (0.0-0.4); Lymphocytes Absolute Auto 1.3 X10*3/uL (1.2-4.9); Lymphocytes Percent Auto 13.3 % (20-40); Mean Corpuscular HGB Conc 33.9 g/dl (31.0-36.0); Mean Corpuscular Hemoglobin 28.4 pg (27.0-33.0); Mean Corpuscular Volume 83.8 fL (80.0-98.0); Mean Platelet Volume 11.8 fL (9.4-12.4); Monocytes Absolute Auto 0.6 X10*3/uL (0.1-1.2); Monocytes Percent Auto 6.3 % (2-11); Neutrophils Absolute Auto 7.9 x10*3/uL (2.0-8.3); Platelet Count 258 X10*3/uL (160-400); Red Blood Count 5.42 X10*6/uL (4.60-5.80); Red Cell Distribution Width 13.5 % (11.0-16.0)
[2024-04-23 04:18] LABS: Acetaminophen LAB < 3 mcg/mL (<30); Salicylate < 5.0 mg/dL (15-30)
[2024-04-23 04:37] LABS: TSH reflex Free T4 1.04 uIU/mL (0.32-4.0)
[2024-04-23 04:40] LABS: Alanine Aminotransferase 63 U/L (0-40); Albumin Level 4.7 g/dL (3.5-5.0); Alkaline Phosphatase 74 U/L (39-117); Anion Gap 18 (12-20); Aspartate Amino Transferase 109 U/L (5-37); Bilirubin Total 0.8 mg/dL (0.0-1.0); Blood Urea Nitrogen 11 mg/dL (9-16); Calcium 9.3 mg/dL (8.4-10.2); Carbon Dioxide 24 mmol/L (22-29); Chloride 103 mmol/L (96-108); Creatinine Clr Calc Pharmacy 143.2; Estimated Glomerular Filt Rate > 60; Ethanol < 10 mg/dL; Glucose Random 97 mg/dL (60-115); Magnesium 1.9 mg/dL (1.6-2.6); Potassium 3.4 mmol/L (3.3-5.1); Sodium 142 mmol/L (135-145); Total Protein 7.9 g/dL (6.5-8.0)
[2024-04-23] MEDS: diphenhydrAMINE HCL 50 MG/ML VIAL 25 MG IVPUSH (08:59)
[2024-04-23] MEDS: LORazepam 2 MG/ML VIAL IVPUSH (09:00)
[2024-04-23] MEDS: Haloperidol Lactate 5 MG/ML VIAL IVPUSH (09:00)
--- NOTE | 2024-04-23 11:01 | MHC.CARE ---
Pt meets the criteria for IPLOC at this time. Section 12a in chart. Provider in agreement.
--- NOTE | 2024-04-23 16:38 | PC.NURSE ---
patient increasingly agitated. paranoid about his car being at home making multiple calls to his mother, demanding that she gets his car here, swearing, slamming phone down. attempting to redirect patient w/o effect. physician aware.
--- NOTE | 2024-04-23 17:01 | PC.NURSE ---
patient phone turned off related patient making multiple phone calls and getting increasingly agitated while on the phone. patient cooperative with phone being turned off, is calmer at this time. urine sample obtained and sent to to lab. patient is now showering.
[2024-04-23 17:02] LABS: Appearance Urine Clear; Color Urine Dark Yellow; Glucose Urine UA Negative (Negative); Leukocyte Esterase Urine Negative (Negative); Nitrite Urine Negative (Negative); Specific Gravity - Urine >= 1.030 (1.005-1.025); UMIC TRIGGER UACC YES; Urine Blood Negative (Negative); Urine Ketones 80 mg/dL (Negative); Urine Protein 30 (1+) mg/dL (Neg-Trace)
[2024-04-23 17:14] LABS: Amphetamine Screen Urine Not Detected (Not Detect); Barbiturates, Urine Not Detected (Not Detect); Benzodiazepines Screen Urine Not Detected (Not Detect); Buprenorphine Scr Not Detected (Not Detect); Cannabinoid Screen Urine POSITIVE (Not Detect); Cocaine Screen Urine Not Detected (Not Detect); Fentanyl, urine Not Detected (Not Detect); Methadone Screen, Urine Not Detected (Not Detect); Opiate Screen Urine Not Detected (Not Detect); Oxycodone Screen Urine Not Detected (Not Detect); Phencyclidine Screen Urine Not Detected (Not Detect)
[2024-04-23 17:30] LABS: Bacteria Urine None Seen (None Seen); Hyaline Casts Urine 0-2 /LPF (0-2); RBC Urine 0-2 /HPF (0-2); Squamous Epithelial Cell Urine 0-2 /HPF (0-2); WBC Urine 0-5 /HPF (0-5)
--- NOTE | 2024-04-23 19:06 | PC.NURSE ---
patient appears to remain at rest presently respirations are even and unlabored patient appears in no distress.
--- NOTE | 2024-04-23 20:15 | PHA.MEDREC ---
Addendum entered by Mireya Rhodes RPh 04/23/24 21:06: michelle reviewed Original Note: Pharmacy Consult ? Medication Reconciliation Pharmacy reviewed med rec done by nursing. Claims match what is confirmed.
[2024-04-23 21:46] LABS: Alanine Aminotransferase 61 U/L (0-40); Albumin Level 4.4 g/dL (3.5-5.0); Alkaline Phosphatase 69 U/L (39-117); Anion Gap 14 (12-20); Aspartate Amino Transferase 104 U/L (5-37); Bilirubin Total 0.9 mg/dL (0.0-1.0); Blood Urea Nitrogen 12 mg/dL (9-16); Calcium 9.1 mg/dL (8.4-10.2); Carbon Dioxide 24 mmol/L (22-29); Chloride 104 mmol/L (96-108); Creatinine Clr Calc Pharmacy 124.2; Estimated Glomerular Filt Rate > 60; Glucose Random 89 mg/dL (60-115); Potassium 3.3 mmol/L (3.3-5.1); Sodium 139 mmol/L (135-145); Total Protein 7.6 g/dL (6.5-8.0)
[2024-04-24 02:03] VITALS: BMI 23.5
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
[2024-04-24 08:00] VITALS: BP 134/71; PULSE 114; RESP 16; TEMP 37.1; O2SAT 98
--- NOTE | 2024-04-24 08:10 | MHC.CARE ---
Pt's grandmother Radha called and wanted to report she discovered Pt has been taking 30mg of Cymbalta and also ingesting large amounts of espresso and energy drinks. Grandmother is a nurse and did research which stated that caffeine should be limited with that medication or it can cause blood pressure concerns. She just wanted to report this for collateral. She was not informed Pt was on a unit at [facility]; just that he is no longer in the ED.
[2024-04-24 09:13] LABS: Estimated Average Glucose 105 mg/dL; Hemoglobin A1C 131.4336 umol/L; Hemoglobin A1c % 5.3 % (<6.0); Total Hemoglobin (HGBA1C) 3862.6138 umol/L
--- NOTE | 2024-04-24 09:26 | P.HPPS_ITS ---
HPI Date of Service: 04/24/24 Chief Complaint: SI Sources of Information: patient interviewed, chart reviewed and crisis/core team assessment reviewed HPI Subjective Notes: Garcia Warning and Conditional Voluntary Narrative: Patient is a 28 yo male, with hx of ASD, who presents after family called 911 due to patient's manic symptoms and disorganized behaviors in the community possibly triggered by restarting Cymbalta. Patient is with pressured speech, rambling, jumping from idea to idea and is thus a limited historian. Regarding events that led him to this admission, patient said he was living in [place] for 3 years during which time he was not taking any medication, including Cymbalta; it seems he came back to [place] a few weeks ago at which time he restarted Cymbalta. Patient introduces himself and says he understands everything, all about psychiatry and he trusts us implicitly. Sitting down, he rambles about the psychology of feeling cornered but physically not knowing...... I trust you implicitly.. I see this meeting as myself.. I understand all this is voluntary... have you ever been in love? Either of you?... Patient talked about how he was in a bad marriage for 3 years which he starting his body; says he was traumatized in [place].. He then says he was traumatized in [employer] when he was talking to a man and then his legs start to cramp up... Patient is upset with his parents, saying they did not understand him; he was upset because he could not clear out the living room and watch television as he wanted to... Patient reports that his parents called the research and development chemist on him twice; the research and development chemist tried to corner him but he was too good and escaped the 1st time... Regarding manic symptoms: Patient seems to endorse that he has been getting little sleep but it is hard to tell; he reports he recently bought a lot of stuff from [employer]... enough to fix any BMW... -He denies any drug use. Denies any AVH; denies any SI or HI. To this group underwriter and some staff he denied alcohol use however family reported he had been drinking alcohol for some amount of time this week... Past Psychiatric History: Psychiatric hospitalizations: Patient says many and that the last 1 was about 3 years ago but he does not know why Reports med history: -Cymbalta which he was on for years; stopped for 3 years while in [place] but restarted 3 weeks ago, just prior to this manic episode -reports trying most SSRIs/SNRIs -low-dose Seroquel which was not helpful -risperidone which was not helpful Medical Evaluation Reviewed: Yes [facility] Medical History (Updated 04/24/24 @ 18:33 by Eliseo Jorgensen MD) Autism Bipolar I disorder History of migraine headaches Asperger's disorder Family History: Deferred Social History: Patient was living in [place] for the past 3 years Now either getting or just and moved back to [place] about 3 weeks ago -worked for [employer] Substance History: Denies; other places say he drinks alcohol Trauma History: Deferred Diagnostics Vital Signs (24Hr): Vital Signs - 24 hr 04/23/24 09:56 04/23/24 11:56 04/23/24 21:15 Temperature 98.1 F 97.5 F Pulse Rate 99 93 135 H Respiratory Rate 18 19 20 Blood Pressure 136/88 138/84 168/96 H Pulse Oximetry 96 99 Oxygen Delivery Method Room Air Room Air BMI result Body Mass Index 23.5 Labs 04/23/24 03:58 04/23/24 21:17 Labs: Laboratory Results - last 48 hr 04/23/24 04/23/24 04/23/24 03:58 16:55 21:17 WBC 10.0 RBC 5.42 Hgb 15.4 Hct 45.4 MCV 83.8 MCH 28.4 MCHC 33.9 RDW 13.5 Plt Count 258 MPV 11.8 Immature Gran % (Auto) 0.4 Neut % (Auto) 79.0 H Lymph % (Auto) 13.3 L [place] % (Auto) 6.3 Eos % (Auto) 0.4 Baso % (Auto) 0.6 Lymph # (Auto) 1.3 [place] # (Auto) 0.6 Eos # (Auto) 0.0 Baso # (Auto) 0.1 Abs Immat Gran (auto) 0.04 H Absolute Neuts (auto) 7.9 Absolute Nucleated RBC 0.000 Nucleated RBC % (auto) 0.0 Sodium 142 139 Potassium 3.4 3.3 Chloride 103 104 Carbon Dioxide 24 24 Anion Gap 18 14 BUN 11 12 Creatinine 0.85 0.98 Estim Creat Clear Calc 143.2 124.2 Estimated GFR > 60 > 60 Random Glucose 97 89 Estimat Average Glucose Hemoglobin A1c % Calcium 9.3 9.1 Magnesium 1.9 Total Bilirubin 0.8 0.9 AST 109 H 104 H ALT 63 H 61 H Alkaline Phosphatase 74 69 Total Protein 7.9 7.6 Albumin 4.7 4.4 TSH 1.04 Urine Color Dark Yellow Urine Appearance Clear Urine pH 6.0 Ur Specific [place] >= 1.030 H Urine Protein 30 (1+) H Urine Glucose (UA) Negative Urine Ketones 80 Urine Blood Negative Urine Nitrite Negative Ur Leukocyte Esterase Negative Urine RBC 0-2 Urine WBC 0-5 Ur Squamous Epith Cells 0-2 Urine Bacteria None Seen Hyaline Casts 0-2 Salicylates < 5.0 L Urine Opiates Screen Not Detected Ur Buprenorphine Scrn Not Detected Ur Oxycodone Screen Not Detected Urine Methadone Screen Not Detected Urine Fentanyl Screen Not Detected Acetaminophen < 3 Ur Barbiturates Screen Not Detected Ur Phencyclidine Scrn Not Detected Ur Amphetamines Screen Not Detected U Benzodiazepines Scrn Not Detected Urine Cocaine Screen Not Detected U Marijuana (THC) Screen POSITIVE H Ethyl Alcohol < 10 04/24/24 08:44 WBC RBC Hgb Hct MCV MCH MCHC RDW Plt Count MPV Immature Gran % (Auto) Neut % (Auto) Lymph % (Auto) [place] % (Auto) Eos % (Auto) Baso % (Auto) Lymph # (Auto) [place] # (Auto) Eos # (Auto) Baso # (Auto) Abs Immat Gran (auto) Absolute Neuts (auto) Absolute Nucleated RBC Nucleated RBC % (auto) Sodium Potassium Chloride Carbon Dioxide Anion Gap BUN Creatinine Estim Creat Clear Calc Estimated GFR Random Glucose Estimat Average Glucose 105 Hemoglobin A1c % 5.3 Calcium Magnesium Total Bilirubin AST ALT Alkaline Phosphatase Total Protein Albumin TSH Urine Color Urine Appearance Urine pH Ur Specific [place] Urine Protein Urine Glucose (UA) Urine Ketones Urine Blood Urine Nitrite Ur Leukocyte Esterase Urine RBC Urine WBC Ur Squamous Epith Cells Urine Bacteria Hyaline Casts Salicylates Urine Opiates Screen Ur Buprenorphine Scrn Ur Oxycodone Screen Urine Methadone Screen Urine Fentanyl Screen Acetaminophen Ur Barbiturates Screen Ur Phencyclidine Scrn Ur Amphetamines Screen U Benzodiazepines Scrn Urine Cocaine Screen U Marijuana (THC) Screen Ethyl Alcohol Meds/Allergies Allergies Allergies Allergy/AdvReac Type Severity Reaction Status Date / Time sumatriptan [From IMITREX] AdvReac Intermediate SEROTONIN Verified 04/23/24 02:39 SYNDROME Mental Status Exam Mental Status Exam Narrative: Pt is alert and oriented; behavior is manic, hyperverbal, intrusive but friendly; patient is not in distress; dressed in casual attire with unkempt hair but adequate hygiene; mood is described as good and affect congruent; eye contact appropriate; Speech pressured and hyperverbal; [id number] psychomotor agitation present; thought process circumstantial, becoming tangential; Thought content is on recent events and relationships with family; no clear delusional content other than some mild grandiose statements; denies any SI/HI. Denies any AVH; Patients insight and judgment impaired Assessment & Plan Assessment & Plan (1) Bipolar I disorder: Status: Acute Code(s): F31.9 - Bipolar disorder, unspecified (2) Autism: Status: Acute Code(s): F84.0 - Autistic disorder Plan Patient is a 28 yo male, with hx of ASD, who presents after family called 911 due to patient's manic symptoms and disorganized behaviors in the community possibly triggered by restarting Cymbalta. Patient is with pressured speech, rambling, jumping from idea to idea and is thus a limited historian. Regarding events that led him to this admission, patient said he was living in [place] for 3 years during which time he was not taking any medication, including Cymbalta; it seems he came back to [place] a few weeks ago at which time he restarted Cymbalta. Patient introduces himself and says he understands everything, all about psychiatry and he trusts us implicitly. Sitting down, he rambles about the psychology of feeling cornered but physically not knowing...... I trust you implicitly.. I see this meeting as myself.. I understand all this is voluntary... have you ever been in love? Either of you?... Patient talked about how he was in a bad marriage for 3 years which he starting his body; says he was traumatized in [place].. He then says he was traumatized in [employer] when he was talking to a man and then his legs start to cramp up... Patient is upset with his parents, saying they did not understand him; he was upset because he could not clear out the living room and watch television as he wanted to... Patient reports that his parents called the research and development chemist on him twice; the research and development chemist tried to corner him but he was too good and escaped the 1st time... Regarding manic symptoms: Patient seems to endorse that he has been getting little sleep but it is hard to tell; he reports he recently bought a lot of stuff from [employer]... enough to fix any [employer]... -He denies any drug use. Denies any AVH; denies any SI or HI. To this group underwriter and some staff he denied alcohol use however family reported he had been drinking alcohol for some amount of time this week... Formulation/clinical reasoning: Patient presents with manic symptoms, pressured and disorganized speech, intrusive behaviors. Patient is a limited historian and it is not clear if he has ever had a manic episode before. He is ambivalent about trying Depakote as a mood stabilizer but said he would consider it if he could have Ativan 0.25 mg (refused higher doses offered by group underwriter). Initially place CIWA from collateral reports however patient says he is hardly drinking at all. Later on patient said he was seeing floaters. He was found to be hypertensive complaining of headache and ocular pain. Rapid response called and patient transferred to medical floor Plan: CV Ativan 0.25 mg p.r.n. Started Depakote ER 500 mg q.h.s. the patient is ambivalent Eventually transferred to medical floor for hypertensive crisis Patient educated on: diagnosis, medication risk/benefits and medical condition Informed Consent: understands, does not understand and further education needed Reason for continued inpatient stay Substantial Risk for: inability to function Statement Statement: I have reviewed the history and physical and performed a pertinent examination on my patient. No changes have occurred unless specified. If the History and Physical was not performed prior to admission, the Hospitalist's service will be consulted for completing the admission physical. Time Spent With Patient Time: Total time managing care of this patient today ____ minutes.
[2024-04-24 09:28] LABS: Cholesterol 115 mg/dL (<200); HDL Cholesterol 35 mg/dL (>40); LDL Cholesterol Calculated 69 mg/dL (<100); Triglycerides 58 mg/dL (<150)
[2024-04-24 09:48] LABS: Thyroid Stimulating Hormone 1.26 uIU/mL (0.32-4.0)
[2024-04-24 10:00] LABS: Vitamin B12 331 pg/mL (200-900)
[2024-04-24] MEDS: LORazepam 1 MG TABLET 2 MG PO (12:03)
[2024-04-24] MEDS: LORazepam 0.5 MG TABLET 0.25 MG PO (14:22)
[2024-04-24] MEDS: hydrALAZINE HCl 25 MG TABLET PO (14:47)
[2024-04-24 14:55] VITALS: BP 198/109; PULSE 111
[2024-04-24 15:00] VITALS: BP 203/107; PULSE 116
--- NOTE | 2024-04-24 15:04 | P.DS_ITS ---
DS: Providers Provider Date of Service: 04/24/24 Date of admission: 04/23/24 17:48 Date of discharge: 04/24/24 Primary care physician: None Physician Attending physician on admission: Eliseo Jorgensen Consults: 04/23/24 10:42 ED CARE Team Crisis Consult Stat Comment: Reason for consultation: Manic behavior 04/24/24 14:32 Consult to Hospitalist Routine Comment: Consulting Provider: [facility] Hospitalists Reason For Exam: ALARCON, occular pain; floaters BP: 207/124 HR 114 Attending physician on discharge: Eliseo Jorgensen DS: Medications Discharge Medications Home Medications: Home Medications ?Medication ?Instructions ?Recorded ?Confirmed duloxetine 30 mg capsule,delayed 30 mg PO BEDTIME 04/23/24 04/23/24 release Mental Status Exam Mental Status Exam Narrative: Pt is alert and oriented; behavior is manic, hyperverbal, intrusive but friendly; patient is not in distress; dressed in casual attire with unkempt hair but adequate hygiene; mood is described as good and affect congruent; eye contact appropriate; Speech pressured and hyperverbal; [id number] psychomotor agitation present; thought process circumstantial, becoming tangential; Thought content is on recent events and relationships with family; no clear delusional content other than some mild grandiose statements; denies any SI/HI. Denies any AVH; Patients insight and judgment impaired Data Data Completed and Pending Completed studies during hospitalization [Text1]: 04/23/24 04/23/24 04/23/24 03:58 16:55 21:17 WBC 10.0 RBC 5.42 Hgb 15.4 Hct 45.4 MCV 83.8 MCH 28.4 MCHC 33.9 RDW 13.5 Plt Count 258 MPV 11.8 Immature Gran % (Auto) 0.4 Neut % (Auto) 79.0 H Lymph % (Auto) 13.3 L [place] % (Auto) 6.3 Eos % (Auto) 0.4 Baso % (Auto) 0.6 Lymph # (Auto) 1.3 [place] # (Auto) 0.6 Eos # (Auto) 0.0 Baso # (Auto) 0.1 Abs Immat Gran (auto) 0.04 H Absolute Neuts (auto) 7.9 Absolute Nucleated RBC 0.000 Nucleated RBC % (auto) 0.0 Sodium 142 139 Potassium 3.4 3.3 Chloride 103 104 Carbon Dioxide 24 24 Anion Gap 18 14 BUN 11 12 Creatinine 0.85 0.98 Estim Creat Clear Calc 143.2 124.2 Estimated GFR > 60 > 60 Random Glucose 97 89 Estimat Average Glucose Hemoglobin A1c % Calcium 9.3 9.1 Magnesium 1.9 Total Bilirubin 0.8 0.9 AST 109 H 104 H ALT 63 H 61 H Alkaline Phosphatase 74 69 Total Protein 7.9 7.6 Albumin 4.7 4.4 Triglycerides Cholesterol LDL Cholesterol, Calc HDL Cholesterol Vitamin B12 Folate TSH 1.04 Urine Color Dark Yellow Urine Appearance Clear Urine pH 6.0 Ur Specific [place] >= 1.030 H Urine Protein 30 (1+) H Urine Glucose (UA) Negative Urine Ketones 80 Urine Blood Negative Urine Nitrite Negative Ur Leukocyte Esterase Negative Urine RBC 0-2 Urine WBC 0-5 Ur Squamous Epith Cells 0-2 Urine Bacteria None Seen Hyaline Casts 0-2 Salicylates < 5.0 L Urine Opiates Screen Not Detected Ur Buprenorphine Scrn Not Detected Ur Oxycodone Screen Not Detected Urine Methadone Screen Not Detected Urine Fentanyl Screen Not Detected Acetaminophen < 3 Ur Barbiturates Screen Not Detected Ur Phencyclidine Scrn Not Detected Ur Amphetamines Screen Not Detected U Benzodiazepines Scrn Not Detected Urine Cocaine Screen Not Detected U Marijuana (THC) Screen POSITIVE H Ethyl Alcohol < 10 04/24/24 08:44 WBC RBC Hgb Hct MCV MCH MCHC RDW Plt Count MPV Immature Gran % (Auto) Neut % (Auto) Lymph % (Auto) [place] % (Auto) Eos % (Auto) Baso % (Auto) Lymph # (Auto) [place] # (Auto) Eos # (Auto) Baso # (Auto) Abs Immat Gran (auto) Absolute Neuts (auto) Absolute Nucleated RBC Nucleated RBC % (auto) Sodium Potassium Chloride Carbon Dioxide Anion Gap BUN Creatinine Estim Creat Clear Calc Estimated GFR Random Glucose Estimat Average Glucose 105 Hemoglobin A1c % 5.3 Calcium Magnesium Total Bilirubin AST ALT Alkaline Phosphatase Total Protein Albumin Triglycerides 58 Cholesterol 115 LDL Cholesterol, Calc 69 HDL Cholesterol 35 L Vitamin B12 331 Folate 10.0 TSH 1.26 Urine Color Urine Appearance Urine pH Ur Specific [place] Urine Protein Urine Glucose (UA) Urine Ketones Urine Blood Urine Nitrite Ur Leukocyte Esterase Urine RBC Urine WBC Ur Squamous Epith Cells Urine Bacteria Hyaline Casts Salicylates Urine Opiates Screen Ur Buprenorphine Scrn Ur Oxycodone Screen Urine Methadone Screen Urine Fentanyl Screen Acetaminophen Ur Barbiturates Screen Ur Phencyclidine Scrn Ur Amphetamines Screen U Benzodiazepines Scrn Urine Cocaine Screen U Marijuana (THC) Screen Ethyl Alcohol DS: Summary Hospital Course Hospital Course: Patient is a 28 yo male, with hx of ASD, who presents after family called 911 due to patient's manic symptoms and disorganized behaviors in the community possibly triggered by restarting Cymbalta. Patient is with pressured speech, rambling, jumping from idea to idea and is thus a limited historian. Regarding events that led him to this admission, patient said he was living in [place] for 3 years during which time he was not taking any medication, including Cymbalta; it seems he came back to [place] a few weeks ago at which time he restarted Cymbalta. Patient introduces himself and says he understands every thing, all about psychiatry and he trusts us implicitly. Sitting down, he rambles about the psychology of feeling cornered but physically not knowing...... I trust you implicitly.. I see this meeting as myself.. I understand all this is voluntary... have you ever been in love? Either of you?... Patient talked about how he was in a bad marriage for 3 years which he starting his body; says he was traumatized in [place].. He then says he was traumatized in [employer] when he was talking to a man and then his legs start to cramp up... Patient is upset with his parents, saying they did not understand him; he was upset because he could not clear out the living room and watch television as he wanted to... Patient reports that his parents called the [employer] on him twice; the [employer] tried to corner him but he was too good and escaped the 1st time... Regarding manic symptoms: Patient seems to endorse that he has been getting little sleep but it is hard to tell; he reports he recently bought a lot of stuff from [employer]... enough to fix any [employer]... -He denies any drug use. Denies any AVH; denies any SI or HI. To this adjusto writer operator and some staff he denied alcohol use however family reported he had been drinking alcohol for some amount of time this week... Formulation/clinical reasoning: Patient presents with manic symptoms, pressured and disorganized speech, intrusive behaviors. Patient is a limited historian and it is not clear if he has ever had a manic episode before. He is ambivalent about trying Depakote as a mood stabilizer but said he would consider it if he could have Ativan 0.25 mg (refused higher doses offered by adjusto writer operator). Initially place CIWA from collateral reports however patient says he is hardly drinking at all. Hypertensive crisis: Later on patient said he was seeing floaters. He was found to be hypertensive complaining of headache and ocular pain. Rapid response called and patient transferred to medical floor Status at Discharge Functional status at discharge: independent ambulation Overall status at discharge: patient is not back to baseline Time Spent with Patient Time attestation: Total time managing care of this patient today ____ minutes. Time spent: Less than 30 minutes Discharge Plan Discharge Anticipated Discharge Date/Time: 04/24/24 15:04 Patient Disposition: Xfer Other Discharge Diagnosis: Bipolar I disorder Referrals: Physician,None [Primary Care Provider] - 1 Week Discharge Medications: New lorazepam 0.5 mg Tablet 0.25 mg PO Q4H PRN (Reason: any kind of anxiety) Qty: 0 0RF divalproex 500 mg Tablet Extended Release 24 Hr 500 mg PO BEDTIME Qty: 0 0RF Discontinued duloxetine 30 mg capsule,delayed release(DR/EC) 30 mg PO BEDTIME Discharge Orders: Discharge Order (Routine); Ordered 04/24/24 Ordered By: Eliseo Jorgensen Diet: Regular diet Activity on Discharge: As tolerated Stand Alone Forms: Patient Portal Discharge page Print Language: Mongolian Care Plan Goals: Transfer to medical floor Health Concerns: Transfer to medical floor Plan of Treatment: Transfer to medical floor Assessment: Risk assessment at time of discharge:? Patient was interviewed prior to discharge and found to be fully oriented and without any SI or HI. Patient has not engaged in any behaviors that suggest dangerousness to self or others Discharge Date/Time: 04/24/24 16:11
== END 2024-04-24 16:11 | disposition other institution (70) | DRG 885 ==
LOC: HO.ED 15:45 → HO.PM5 18:02
PROVIDERS: Emergency Medicine Emergency Medical Services; Admitting Provider Social Worker; Emergency Provider Emergency Medicine; Visit Provider Social Worker
DX: F31.9 Bipolar disorder, unspecified (principal); I16.9 Hypertensive crisis, unspecified; F84.0 Autistic disorder; I10 Essential (primary) hypertension; Z79.899 Other long term (current) drug therapy
CPT/HCPCS: 36415; 70450; 72125; 80053; 80061; 80143; 80179; 80307; 81001; 81003; 82607; 82746; 83036; 83735; 84443; 85025; 99285; J1200; J1630; J2060; S9485

== ENCOUNTER → 2024-04-23 03:55 | Outpatient (BNV) | payer OTHER, SELFPAY | PROVIDERS: Emergency Provider Emergency Medicine Emergency Medical Services; Visit Provider Radiology Diagnostic Radiology | DX: M54.2 Cervicalgia (principal); R41.82 Altered mental status, unspecified | CPT/HCPCS: 70450; 72125 ==

== ENCOUNTER → 2024-04-23 17:48 | Outpatient (BNV) | payer OTHER, SELFPAY | PROVIDERS: Admitting Provider Social Worker; Emergency Provider Emergency Medicine; Visit Provider Psychiatry & Neurology Psychiatry | DX: F31.13 Bipolar disorder, current episode manic without psychotic features, severe (principal); F84.0 Autistic disorder | CPT/HCPCS: 99239; 99499 ==

== ENCOUNTER → 2024-04-24 14:47 | Outpatient (BNV) | payer OTHER, SELFPAY | PROVIDERS: Admitting Provider Nurse Practitioner Acute Care; Visit Provider Internal Medicine Cardiovascular Disease | DX: R00.0 Tachycardia, unspecified (principal) | CPT/HCPCS: 93010 ==

== ENCOUNTER 2024-04-24 16:52 | Inpatient (IN) | payer OTHER, SELFPAY ==
--- NOTE | 2024-04-24 | ECG_ITS ---
Test Reason : rapid respond Blood Pressure : */* mmHG Vent. Rate : 101 BPM Atrial Rate : 101 BPM P-R Int : 136 ms QRS Dur : 94 ms QT Int : 358 ms P-R-T Axes : 72 86 27 degrees QTcB Int : 464 ms Sinus tachycardia Otherwise normal ECG No previous ECGs available Referred By: Yenifer Lott Electronically Signed By: JARVIS COLLADO MD
--- NOTE | 2024-04-24 16:55 | P.HPHOSP_ITS ---
History of Present Illness Date of Service: 04/24/24 Chief Complaint: Hypertension 28-year-old man with a history of Asperger's admitted to for rose marie, anxiety. He was noted to have elevated blood pressure readings since admission that were waxing and waning. Today patient's blood pressure was as high as 203/107 and he reported ?floaters? and headache. When asked again about these things he stated that they are both chronic. He was also noted to be tachycardic with heart rate in the 110's. Because of patient's rose marie was difficult to assess. I discussed with his mother and grandmother. They reported that the patient had moved to [place] in 2019 and got . They had not discussed a lot of his medical issues and were really unsure if he has been taking any medications for mental illness or not. His mother reported that he came back to [place] in January of 2024 and was in the process of filing for divorce. She reported that he has been drinking alcohol on a regular basis around that time but had quickly stopped within about a month. In March he started drinking a lot of espresso coffee and energy drinks. His mother and grandmother had not known at the time that the patient has been talking to an online therapist/provider and was started on Cymbalta 10 mg daily. He was also taking flexeril for body and neck pain. Over the last week and a half his mother and grandmother noted that he had not slept for more than 6-8 hours within that time he was perseverating, doing multiple things in the home without finishing. They filed a section 12 and he ended up in the emergency department. From there he went to and from he was transferred to the medical-surgical floor for management of hypertension. Review of Systems 2 Review of Systems: Yes Unobtainable due to mental status [facility] Medical History (Updated 04/24/24 @ 18:33 by Eliseo Jorgensen MD) Autism Bipolar I disorder History of migraine headaches Asperger's disorder Social History Household Members: Family Household Members Other:: Mother, Grandmother Housing: House Do you presently have visiting nurse or other home services: No Alcohol intake: never Patient Tobacco Use Status: Never used Tobacco Substance Use Type: Marijuana Substance Use Frequency: Occasionally Last Used Substance: Unknown Currently Displaying Signs/Symptoms of Drug Intoxication Withdrawal: No Any prior treatment program specific to substance use: No Have you been hit, kicked, punched, or otherwise hurt by someone within the past year? If so, by whom?: No Do you feel safe in your current relationship?: No Current Relationship Is there a partner from a previous relationship who is making you feel unsafe now?: No Are you made to feel afraid or neglected: No Advance Directives: No Advance Directives Information Provided: No Do you have a plan to hurt others: No Plan Recently lost weight without trying: No Eating poorly because of decreased appetite: No Nutrition Risks: No Nutritional Risk Poor oral hygiene: No service: No Sexual orientation: Straight/Heterosexual Meds Allergies Allergy/AdvReac Type Severity Reaction Status Date / Time sumatriptan [From IMITREX] AdvReac Intermediate SEROTONIN Verified 04/23/24 02:39 SYNDROME Active Medications: Current Medications Acetaminophen (Acetaminophen 325 Mg Tablet) 650 mg PO Q6H PRN PRN Reason: Pain, Mild 1-3,fever,headache Calcium Carbonate (Calcium Carbonate 750 Mg Tab.Chew) 750 mg PO Q4H PRN PRN Reason: Heartburn Clonidine HCl (Clonidine Hcl 0.1 Mg Tablet) 0.1 mg PO DAILY TYREE; Protocol Lorazepam (Lorazepam 2 Mg/Ml Vial) 1 mg IVPUSH Q4H PRN PRN Reason: Anxiety Magnesium Hydroxide (Milk Of Magnesia 30 Ml Oral.Susp) 30 ml PO DAILY PRN PRN Reason: Constipation Melatonin (Melatonin 3 Mg Tablet) 6 mg PO BEDTIME PRN PRN Reason: Insomnia Ondansetron HCl (Ondansetron Hcl 4 Mg/2 Ml Vial) 4 mg IVPUSH Q8H PRN PRN Reason: Nausea and Vomiting Sodium Chloride (0.9 % Sodium Chloride Flush 3 Ml Syringe) 3 ml IVFLUSH QSHIFT TYREE Physical Exam 2 Vital Signs and Narrative: appearing manic head is normocephalic atraumatic eyes pupils are PERRLA sclera is anicteric mouth throat mucous membranes are intact and moist neck is supple no lymphadenopathy, no JVD noted lung sounds are clear to auscultation heart regular rate rhythm, clear S1, S2 positive bowel sounds, abdomen is soft, nontender neuro patient is alert x3, no focal deficits Results Labs 04/25/24 05:07 04/25/24 05:07 Assessment and Plan (1) Hypertension: Status: Acute Plan 28-year-old man transferred from due to hypertensive urgency with systolic blood pressure as high as 200 with patient reporting headache and ?floaters?. Hypertensive urgency alarm security or surveillance monitor Start clonidine Hydralazine for systolic blood pressure greater than 190 Encouraged sleep No caffeine diet Tachycardia Likely component of anxiety EKG showing sinus tach with normal range QTC Acute psychosis Psychiatric team to help manage Lorazepam p.r.n. DVT prophylaxis with early ambulation Full code Quality Stroke Does the patient have a stroke diagnosis?: No VTE Prior VTE?: No VTE Risk Level:: Medical - low VTE Device Contraindication: Treatment Not Indicated VTE Drug Contraindication: Treatment Not Indicated
--- OUTSIDE RECORDS SUMMARY | 2024-04-24 16:55 | XMS_ITS | Data Portability ---
Author Organization [facility], [facility] Address [address] [place] [address] Assessment Encounter Date Assessment Date Assessment LastModified by Organization Details LastModified Time 10/18/2016 10/18/[address] [facility] Browne. Will get labs, CBC, CMP, [...] was notified that the provider location is [facility] Patient location: home During the visit the [...] was notified that the provider location is [facility] Patient location: home During the visit the patient? s medical history and medical record were reviewed. The patient was notified to call our office for worsening or urgent symptoms. video Not available 09/26/2019 09:24:56 Plan of Treatment Reminders Order Date Submit Date Provider Last Modified By Organization Details Last Modified Time Details Appointments None recorded. Lab CBC 2016 017 [facility], [address] [place] [address], [address], 7 09:42:11 lyme disease igg+igm Ab, serum 2016 017 [facility], [address] [place] [address], [address], 7 16:30:14 CMP, serum or plasma 2016 017 [facility], [address] [place] [address], [address], 7 09:18:55 C-reactive protein, quantitati ve, serum or plasma 2016 017 [facility], [address] [place] [address], [address], 7 09:18:56 RPR (rapid plasma reagin), serum 2017 018 [facility], [address] [place] [address], [address], 8 11:32:48 hepatitis C virus Ab, serum 2017 018 [facility], [address] [place] [address], [address], 8 03:27:24 HBsAg (hepatitis B surface Ag), serum 2017 018 [facility], [address] [place] [address], [address], 8 03:27:26 HIV (1+2) antibodies , EIA, serum, reflex HIV-1 western blot (WB) 2017 018 [facility], [address] [place] [address], [address], 8 03:27:27 CT + NG DNA, PCR, unspecifie d specimen 2017 018 [facility], [address] [facility], [place], [address], 8 14:18:01 Referral physical therapist referral 2017 018 [facility] [place] [facility] [address], [address] , [place], [address], 9 16:00:18 Procedures None recorded. Surgeries None recorded. Imaging XR, abdomen - New onset of acute constipati on x 2 weeks 2016 017 [facility] (Imaging), [address], [place], [address], 7 13:16:40 Medication Orders prazosin 1 mg capsule 2019 020 INTERFACE [id number], [address] [place], [address], 0 11:29:26 venlafaxin e ER 37.5 mg capsule,ex tended release 24 hr 2019 020 INTERFACE [id number], [address] [place], [address], 0 11:29:26 cyclobenza germán 5 mg tablet 2019 020 INTERFACE [id number], [address] [place], [address], 0 09:28:13 lorazepam 1 mg tablet 2019 020 [facility]FACE [id number], [address] [place], [address], 0 09:28:15 prazosin 1 mg capsule 2019 020 INTERFACE [facility], [address] [place], [address], 0 09:28:13 Patient TargetsNo targets recorded. Patient Instructions Encounter Date Encounter Id Patient Instructions Last Modified By Organization Details Last Modified Time 10/20/2017 [id number] Well Visit, Ages 18 to 65: Care Instructions Not available 10/20/2017 10:32:41 Reason for Referral Physical Therapist Referral for Low back pain low back pain and neck pain. Please eval and treat. Referring Physician: Michelle Bauer, [facility], Encounter Date: 10/03/2017 Results Created Date Observation Date Name Description Value Unit Range Abnormal Flag Note LastModifiedBy Organization Detail LastModifiedTime 10/19/19 17 10/19/2016 CMP, serum or plasm a glucose 100 mg/dL 70-100 Not Available [address], [address], 10/19/2016 09:18:55 10/19/19 17 10/19/2016 CMP, serum or plasm a BUN 5 mg/dL 7-18 low Not Available [address], [address], 10/19/2016 09:18:55 10/19/19 17 10/19/2016 CMP, serum or plasm a creatinine 1.1 mg/dL 0.8-1. 3 Not Available [address], [address], 10/19/2016 09:18:55 10/19/19 17 10/19/2016 CMP, serum or plasm a B/C 4.5 ratio Not Available [address], [address], 10/19/2016 09:18:55 10/19/19 17 10/19/2016 CMP, serum or plasm a GFR -non 90.7 mL/mi n Recom soniya d GFR by the Natio nal Kidne y Found ation >60 mL/mi n/1.7 3m2 - Destiny l <60 mL/mi n/1.7 3m2 - Chron ic Kidne y Disea se <15 mL/mi n/1.7 3m2 - Kidne y Failu re Not Available [address], [address], 10/19/2016 09:18:55 10/19/19 17 10/19/2016 CMP, serum or plasm a GFR - if 109.8 mL/mi n For Afric an Ameri can patie nts: Resul ts Multi plied by 1.21 Not Available [address], [address], 10/19/2016 09:18:55 10/19/19 17 10/19/2016 CMP, serum or plasm a sodium 142 mmol/ L 136-14 5 Not Available [address], [address], 10/19/2016 09:18:55 10/19/1910/19/2016 CMP, serum or plasm a potassium 4.0 mmol/ L 3.5-5. 1 Not Available [address], [address], 10/19/2016 09:18:55 10/19/1910/19/2016 CMP, serum or plasm a chloride 104 mmol/ L 96-107 Not Available [address], [address], 10/19/2016 09:18:55 10/19/1910/19/2016 CMP, serum or plasm a anion gap 9.2 5.0-15 .0 Not Available [address], [address], 10/19/2016 09:18:55 10/19/1910/19/2016 CMP, serum or plasm a CO2 29 mmol/ L 21-32 Not Available [address], [address], 10/19/2016 09:18:55 10/19/1910/19/2016 CMP, serum or plasm a calcium 9.0 mg/dL 8.5-10 .3 Not Available [address], [address], 10/19/2016 09:18:55 10/19/1910/19/2016 CMP, serum or plasm a total protein 7.2 g/dL 6.4-8. 2 Not Available [address], [address], 10/19/2016 09:18:55 10/19/1910/19/2016 CMP, serum or plasm a albumin 4.3 g/dL 3.4-5. 0 Not Available [address], [address], 10/19/2016 09:18:55 10/19/1910/19/2016 CMP, serum or plasm a globulin 2.9 g/dL Not Available [address], [address], 10/19/2016 09:18:55 10/19/1910/19/2016 CMP, serum or plasm a A/G 1.5 ratio 0.8-2. 0 Not Available [address], [address], 10/19/2016 09:18:55 10/19/1910/19/2016 CMP, serum or plasm a total bilirubin 0.40 mg/dL 0.00-1 .00 Not Available [address], [address], 10/19/2016 09:18:55 10/19/1910/19/2016 CMP, serum or plasm a AST 24 U/L 15-37 Not Available [address], [address], 10/19/2016 09:18:55 10/19/1910/19/2016 CMP, serum or plasm a ALT 31 U/L 30-65 Not Available [address], [address], 10/19/2016 09:18:55 10/19/1910/19/2016 CMP, serum or plasm a alk. phos. 66 U/L 50-136 Not Available [address], [address], 10/19/2016 09:18:55 10/19/1910/19/2016 C-corey ctive prote in, quant itati ve, serum or plasm a C-reactive protein -quant 6.4 mg/L 0.0-9. 0 Not Available [address], [address], 10/19/2016 09:18:56 10/19/1910/19/2016 CBC WBC 5.0 K/??L 4.2-9. 1 Not Available [address], [address], 10/19/2016 09:42:11 10/19/1910/19/2016 CBC RBC 5.31 M/??L 4.63-6 .08 Not Available [address], [address], 10/19/2016 09:42:11 10/19/1910/19/2016 CBC HGB 15.3 g/dL 13.7-1 7.5 Not Available [address], [address], 10/19/2016 09:42:11 10/19/1910/19/2016 CBC HCT 47.4 % 40.1-5 1.0 Not Available [address], [address], 10/19/2016 09:42:11 10/19/1910/19/2016 CBC MCV 89.3 ??L 79.0-9 2.2 Not Available [address], [address], 10/19/2016 09:42:11 10/19/1910/19/2016 CBC MCH 28.8 pg 25.7-3 2.2 Not Available [address], [address], 10/19/2016 09:42:11 10/19/1910/19/2016 CBC MCHC 32.3 g/dL 32.3-3 6.5 Not Available [address], [address], 10/19/2016 09:42:11 10/19/19 17 10/19/2016 CBC plt 208.0 K/??L 163.0- 337.0 Not Available [address], [address], 10/19/2016 09:42:11 10/19/1910/19/2016 CBC MPV 12.5 9.4-12 .4 high Not Available [address], [address], 10/19/2016 09:42:11 10/19/1910/19/2016 CBC neut% 73.4 % 34.0-6 7.9 high Not Available [address], [address], 10/19/2016 09:42:11 10/19/1910/19/2016 CBC neut# 3.7 1.8-5. 4 Not Available [address], [address], 10/19/2016 09:42:11 10/19/1910/19/2016 CBC lymph % 9.9 % 21.8-5 3.1 low Not Available [address], [address], 10/19/2016 09:42:11 10/19/1910/19/2016 CBC lymph # 0.5 K/??L 1.3-3. 6 low Not Available [address], [address], 10/19/2016 09:42:11 10/19/1910/19/2016 CBC mono% 13.3 % 5.3-12 .2 high Not Available [address], [address], 10/19/2016 09:42:11 10/19/1910/19/2016 CBC mono# 0.7 0.3-0. 8 Not Available [address], [address], 10/19/2016 09:42:11 10/19/19 17 10/19/2016 CBC eo% 2.8 % 0.8-7. 0 Not Available [address], [address], 10/19/2016 09:42:11 10/19/19 17 10/19/2016 CBC eo# 0.1 0.0-0. 5 Not Available [address], [address], 10/19/2016 09:42:11 10/19/19 17 10/19/2016 CBC baso% 0.6 % 0.2-1. 2 Not Available [address], [address], 10/19/2016 09:42:11 10/19/19 17 10/19/2016 CBC baso# 0.0 0.0-0. 1 Not Available [address], [address], 10/19/2016 09:42:11 10/19/19 17 10/19/2016 CBC RDW-CV 13.9 % 11.6-1 4.4 Not Available [address], [address], 10/19/2016 09:42:11 10/19/19 17 10/19/2016 lyme disea se igg+i gm Ab, serum borrelia burgdorferi Ab 0.20 <0.90 <=0.9 0 - Negat shari 0.91 - 1.09 - Equiv ocal >=1.1 0 - Posit shari Not Available [address], [address], 10/19/2016 16:30:14 10/21/19 18 10/21/2017 hepat itis C virus Ab, serum hepatitis C antibody NON-RE ACTIVE non-re active normal Not Available [facility] [address], [place], [address], 10/21/2017 03:27:24 10/21/19 18 10/21/2017 hepat itis C virus Ab, serum signal to cut-off 0.01 <1.00 normal Not Available [facility] [address], [place], [address], 10/21/2017 03:27:24 10/21/19 18 10/21/2017 HBsAg (hepa titis B surfa ce Ag), serum hepatitis B surface antigen NON-RE ACTIVE non-re active normal Not Available [facility] [address], [place], [address], 10/21/2017 03:27:26 10/21/19 18 10/21/2017 HIV 1+2 [...] state law prohi bits you from ary guevara furth er discl osure of the infor matio n witho ut the speci fic writt en conse nt of the perso n to whom it perta ins, or as other izaguirre permi tted by law. A gener al autho rizat ion for the relea se of medic [...] less than 2 years old. Not Available [facility] [address] Esequiel Moss, [place], [address], 10/21/2017 03:27:27 10/21/19 18 10/26/2017 CT + NG DNA, PCR, unspe cifie d speci men N. gonorrhoeae Neg negati ve Not Available [address], [address], 10/26/2017 14:18:01 10/21/19 18 10/26/2017 CT + NG DNA, PCR, unspe cifie d speci men C. trachomatis Neg negati ve Not Available [address], [address], 10/26/2017 14:18:01 10/21/19 18 10/27/2017 RPR (rapi d plasm a reagi n), serum RPR NON-RE ACTIVE nonrea ctive Not Available [address], [address], 10/27/2017 11:32:48 10/19/19 17 10/18/2016 XR, abdom [...] Impres valdo: Normal Electr onical ly signed Readin g Physic francisco javier: Joshua [email or web address] [facility] (Imaging) [address], [place], [address], 10/18/2016 13:54:59 Result Notes None recorded. Problems Name Problem SNOMED Code Status Onset Date Resolution Date Notes Provider Name and Address Organization Details Recorded Time Pain in limb 84460393 Completed 01/31/2013 Not Available [facility] 3 02:00:57 Autism spectrum disorder 90986302 Active 2006 Not Available [facility] 1 10:38:59 Major depressive disorder 246253880 Active Not Available [facility] 10:38:59 Headache 91209718 Active Not Available [facility] 10:38:59 Problem Notes None recorded. Procedures Surgical History None recorded. Imaging Results Imaging Date Name Status LastModified by Organiz ation Details LastModified Time 10/18/2016 XR, abdomen completed [address] [facility] (Imaging) [address], [place], [address], 10/18/2016 13:54:59 Procedure Notes None recorded. Medical Equipment None Reported. Allergies Allergen ID Allergen Name Allergen Category Reaction Reaction Severity Criticality Documentation Date Start Date Code Code System Note Provider Name and Address Organization Details Recorded Time 411646 sumatript an medicatio n Not available Not available Not available 10/08/2014 41789 RxNorm ?sero tonin syndr ome when taken w/ cital opram Bladimir Holloway PA-C [address] [place] [address] [place], [address] [place] [address] Medical [facility] 5 09:26:52 Medications Name Sig Start Date Stop Date Status Note LastModified by Organization Details LastModified Time butalbita l/acetami nophen/ca ffeine 50-300-40 mg caps 11/02 completed Not Available Not Available Not Available citalopra m hydrobrom miguel 40 mg tabs 11/02 completed Not Available Not Available Not Available bupropion hcl xl 150 mg tb24 active Not Available Not Available Not Available gabapenti n 300 mg caps 11/02 completed Not Available Not Available Not Available minocycli ne hcl 100 mg caps active Not Available Not Available Not Available quetiapin e fumarate 25 mg tabs active Not Available Not Available Not Available flulaval quadrival ent susp active Not Available Not Available Not Available sumatript [...] Updated DateTime 7 179.705 cm 22.5 kg/m2 20034.7 8 g 97 /min 98 % 98 % 98.1 [degF] 128 mm[Hg] 80 mm[Hg] Mago StevensonSHADIA story [facility] 7 11:26:52 Date Recorded Body height Body mass index (BMI) Body weight Heart rate Systolic blood pressure Diastolic blood pressure Provider Name and Address Organization Details Last Updated DateTime 8 179.705 cm 22.9 kg/m2 83262.5 6 g 88 /min 120 mm[Hg] 90 mm[Hg] Joserah Garcia MA [facility] 8 16:15:04 Date Recorded Body height Body mass index (BMI) Body weight Systolic blood pressure Diastolic blood pressure Provider Name and Address Organization Details Last Updated DateTime 10/20/2017 179.705 cm 23 kg/m2 25199.15 g 124 mm[Hg] 80 mm[Hg] Hans GarciaSHADIA [facility] 8 09:55:30 Social History Question Answer Notes LastModified by Organizat ion Details LastModified Time Tobacco Smoking Status Never Smoker 09/26/19 [facility] 07/26/2019 10:52:21 What Is Your Level Of [...] Vape? 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 No Information not available 10/08/2014 Live Alone Or With Others? With Others Mother/grand mother [email or web address] Information not available 12/17/2013 Marital Status Single primo Informatio n not available 11/29/2013 Mosquito Repellent Used Routinely No ninahugo Information not available 01/22/2015 What Was The Date Of Your Most Recent Tobacco Screening? 09/26/2019 09/26/19 ABHIJIT Information not available 09/26/2019 How Many Children Do You Have? 0 [email or web address] Information not available 11/29/2013 Seat Belts Used [...] Have You Smoked Tobacco? 0 09/26/19 ABHIJIT [email or web address] Information not available 07/26/2019 Sex: Unknown Functional [...] Immunizations Vaccine Type Date Status Note Provider Nam e and Address Organization Details Recorded Time HPV, quadrivalent 4 completed Not Available [facility] 03/31/2019 02:39:32 influenza, seasonal, intradermal, preservative free 4 completed Not Available [facility] 03/31/2019 02:19:20 HPV, quadrivalent 5 completed Not Available [facility] 03/31/2019 02:20:14 meningococcal MCV4P 5 completed Not Available [facility] 03/31/2019 02:29:50 Hep A, adult 6 completed Not Available [facility] 03/31/2019 02:20:39 HPV, unspecified formulation 3 completed Rosemary Buschini, TRANSITIONAL CARE NURSE null, [facility] 11/29/2013 16:35:35 Tdap 9 completed Rosemary Buschini, TRANSITIONAL CARE NURSE null, [facility] 11/29/2013 16:40:36 Hep B, unspecified formulation 7 completed Rosemary Buschini, TRANSITIONAL CARE NURSE null, [facility] 11/29/2013 17:08:39 Hib, unspecified formulation 8 completed Rosemary Buschini, TRANSITIONAL CARE NURSE null, [facility] 11/29/2013 17:08:39 DTaP 8 completed Rosemary Buschini, TRANSITIONAL CARE NURSE null, [facility] 11/29/2013 17:08:39 Hep B, unspecified formulation 8 completed Rosemary Buschini, TRANSITIONAL CARE NURSE null, [facility] 11/29/2013 17:08:39 Hib, unspecified formulation 7 completed Rosemary Buschini, TRANSITIONAL CARE NURSE null, [facility] 11/29/2013 17:08:39 DTaP 7 completed Rosemary Buschini, TRANSITIONAL CARE NURSE null, [facility] 11/29/2013 17:08:39 Hib, unspecified formulation 7 completed Rosemary Buschini, TRANSITIONAL CARE NURSE null, [facility] 11/29/2013 17:08:39 DTaP 1 completed Rosemary Buschini, TRANSITIONAL CARE NURSE null, [facility] 11/29/2013 17:08:39 DTaP 7 completed Rosemary Buschini, TRANSITIONAL CARE NURSE null, [facility] 11/29/2013 17:08:39 DTaP 7 completed Rosemary Buschini, TRANSITIONAL CARE NURSE null, [facility] 11/29/2013 17:08:39 Hib, unspecified formulation 7 completed Rosemary Buschini, TRANSITIONAL CARE NURSE null, [facility] 11/29/2013 17:08:39 Hep B, unspecified formulation 7 completed [facility]mary Buschini, [facility]ANS[facility] 11/[facility]/2013 17:08:39 IPV 1 completed Rosemary Buschini, TRANSITIONAL CARE NURSE null, [facility] 11/29/2013 17:17:15 varicella 8 completed Rosemary Buschini, TRANSITIONAL CARE NURSE null, [facility] 11/29/2013 17:17:15 influenza, unspecified formulation 3 completed Rosemary Buschini, TRANSITIONAL CARE NURSE null, [facility] 11/29/2013 17:17:15 meningococcal MCV4, unspecified formulation 9 completed Rosemary Buschini, [facility] 11/29/2013 17:17:15 MMR 2 completed Rosemary Buschini, TRANSITIONAL CARE NURSE null, [facility] 11/29/2013 17:17:15 varicella 7 completed Rosemary Buschini, TRANSITIONAL CARE NURSE null, [facility] 11/29/2013 17:17:15 influenza, unspecified formulation 1 completed Rosemary Buschini, TRANSITIONAL CARE [facility] 11/29/2013 17:17:15 MMR 8 completed Rosemary Buschini, TRANSITIONAL CARE NURSE null, [facility] 11/29/2013 17:17:15 IPV 7 completed Rosemary Buschini, TRANSITION[facility] CARE [facility] 11/29/2013 17:17:15 influenza, unspecified formulation 0 completed Rosemary Buschini, TRANSITIONAL CARE NURSE null, [facility] 11/29/2013 17:17:15 Influenza, split virus, quadrivalent, PF 3 completed Rosemary Buschini, TRANSITIONAL CARE [facility] 11/29/2013 17:17:15 OPV 8 completed Rosemary Bustiffanyi, TRANSITIONAL CARE NURSE [facility] 11/29/2013 17:17:15 IPV 7 completed Rosemary Rosenbaum LPN null, [facility] 11/29/2013 17:17:15 Influenza, split virus, quadrivalent, preservative 5 completed Not Available [facility] 04/14/2019 02:10:39 COVID-19, mRNA, LNP-S, PF, 30 mcg/0.3 mL dose 1 completed Mariana Auguste CMA null, [facility] 07/14/2020 16:02:20 COVID-19, mRNA, LNP-S, PF, 30 mcg/0.3 mL dose 1 completed SHADIA Sanchez, [facility] 07/14/2020 16:09:20 Past Encounters Encounter ID Performer Location Encounter Start Date Encounter Closed Date Diagnosis/Indication Diagnosis SNOMED-CT Code Diagnosis ICD10 Code Diagnosis Note [id number] LAB - [facility] [place]IN[place] [address] 03/10/2007 14:23:20 03/10/2007 14:23:26 [id number] Radiology , [facility] [place] [address] 12/02/2008 09:03:53 12/04/2008 12:30:07 [id number] Telma Alegre RN , [facility] [place] [address] [place] [address] 11/29/2013 14:38:29 11/29/2013 16:44:36 Well child [id number] Counseling 373561030 Asperger's disorder 57272338 very functional Celiac disease 369583191 seems stable with diet Major depr essive disorder 577253558 No SI. Feels like 1-2 times a week feels a bit better, but not really rose marie.Tria l paxil. Informed risk SI with meds. Will fu 2 wks. Tick bite 04356189 Active or passive immunization 922313115 [id number] Kelly Dennis MA , [facility] [place] [address] [place] [address] 12/17/2013 15:38:52 12/17/2013 16:02:13 Major depressive disorder 111636726 Feels ok for short while ,but wears off. No SE. Increase dose and fu 1 month No SI [id number] Danette Jolley MA , [facility], [address] [place] [address] 12/29/2013 14:19:43 12/29/2013 15:31:46 Migraine without aura 02425146 likley migraines, discussed heagache diary, stress reduction, exercise , sleep and food triggers, will try imitrex and can discuss prophalaxi s with Bladimir Holloway his pcp [id number] Telma Alegre RN , [facility], [place] [address] [place] [address] 12/31/2013 17:07:38 12/31/2013 17:45:17 Influenza vaccine needed 4501370351 106 Major depr essive disorder 594667714 Paxil not much help on lower dose and higher dose had adverse SE. Try effexor to see if it can also give some help ww/ ALARCON. If not covered, would change to bupropion No SI Migraine without aura 04665112 see above [id number] Whit Brizuela , [facility], [place]ICE [address] [place] [address] 06/26/2014 16:05:17 06/26/2014 16:43:37 Epistaxis 77271135 no other bleed likely posterior on right [id number] [facility], OFFICE [address] [place] [address] 10/08/2014 08:48:05 10/08/2014 09:34:32 Palpitations 01238890 Prob serotonin syndrome, resolved now. Imitrex added to allergies list in this context Migraine without aura 15391855 to neuro for eval of other options besides triptans. [id number] Joanne Self , [facility], [place] [address] [place] [address] 01/22/2015 13:43:12 01/22/2015 14:17:43 Active or passive immunization 977800139 Z23 Administra tion of bacterial vaccine 341793686 Z23 Adult heal th examination 033246094 Z00.00 Benign exam Depressive disorder 3548 9007 F32.9 Stable on meds/thera py Headache 45390111 R51 Followed by neuro. [id number] Bladimir Holloway PA-C , [facility], [place] [address] [place] [address] 11/03/2015 10:25:52 11/06/2015 14:31:39 Active or passive immunization 118423641 Z23 Major depr essive disorder 621347148 F32.9 Seems stable now s/p suicide attempt. 2x/week therapy and psychiatri st ~1x/month Tachycardia 9106155 R00. 0 to see cards in 2 days. No tachycardi a now. [id number] Bladimir Holloway PA-C , [facility], [place]ICE [address] [place] [address] 08/04/2016 08:23:04 08/04/2016 09:02:37 Adult health examination 761990817 Z00.00 Benign exam Counseling 665763862 Z71 .9 Headache 26742518 R51 Tries to avoid triggers Autism spe ctrum disorder 04877682 F84.9 part of care Major depr essive disorder 678231380 F32.9 Seems stable now s/p suicide attempt.Do es have depression , but no SI. Celexa helped in past. Therapy no help. Will restart celexa and fu 2 wks, to make sure no suicidalit y developing [id number] Bladimir Holloway PA-C , [facility], [place]ICE [address] [place] [address] 08/18/2016 14:57:16 08/18/2016 15:30:31 Major depressive disorder 836736759 F32.9 Seems stable now s/p suicide attempt.Do es have depression , but no SI. Celexa helped in past. Therapy no help. Will restart celexa and fu 2 wks, to make sure no suicidalit y developing [id number] Quin Contreras , [facility] [place] [address] [place] [address] 10/18/2016 11:19:53 10/18/2016 11:54:29 Constipation [id number] K59.00 Fever [id number] R50.9 [id number] Ryan Wright MD , [facility] [place] [address] [place] [address] 10/03/2017 15:52:19 10/03/2017 16:41:15 Neck pain [id number] M54.2 Moderate trapezius spasm bilaterall y. Likely due to long hrs on the computer/h igh stress/poo r posture. Continue flexeril and meloxicam as prescribed . Reviewed R/B/A of meds again with patient. Discussed heat, stretching . Will refer to PT- needs something close to home. Low back pain [id number] M54.5 Low back and neck pain x several months. MSK in nature. Likely due to long hrs on the computer/h igh stress/poo r posture. Continue flexeril and meloxicam as prescribed . Reviewed R/B/A of meds again with patient. Discussed heat, stretching . Will refer to PT- needs something close to home. [id number] Ryan Wright MD , [facility] [place] [address] [place] [address] 10/20/2017 09:43:01 10/20/2017 10:19:54 Adult health examination [id number] Z00.00 see Risk Assessment and Lifestyle Change Counseling section above Counseling [id number] Z71 .9 Depression screening 171 [id number] Z13.89 depression screening tool administer ed, entered into emr, scored and discussed, time greater than 7.5 minutes Venereal d isease screening [id number] Z11.3 STD screening done at his request. Asymptomat ic. F/u pending results. Encouraged safe sex practices. Major depr essive disorder [id number] F32.9 Mood has been stable. Followed by Dr. Martinez. Currently on lexapro 5 mg, prazosin 1 mg and lorazepam 1 mg PRN, which he uses rarely. Neck pain [id number] M54.2 Much improved with PT/stretch es. Continue PT through end of the month as scheduled. Home stretches and posture. Also discussed regular exercise. [id number] Michelle Bauer PA-C , [facility] [place] [address] [place] [address] 07/26/2019 07:56:33 07/27/2019 09:35:27 Major depressive disorder [id number] F32.9 Mood has been stable. Followed by Harley Ramirez. Currently on venlafaxin e ER 37.5 mg daily and lorazepam 1 mg PRN, which he uses a few times a week. I have agreed to Rx his meds. Restart prazosin. F/u in 1 month, sooner as needed. [id number] Michelle Bauer PA-C , [facility] [place] [address] [place] [address] 09/26/2019 09:05:13 09/27/2019 13:13:49 Major depressive disorder [id number] F32.9 Mood has been stable. Previously followed by Harley Ramirez. Continue venlafaxin e ER 37.5 mg daily and lorazepam 1 mg PRN (using about twice a week). Continue prazosin at bedtime. F/u for wellness visit. Rx renewed. Muscle spa sm of head and/or neck [id number] M62.838 Trial of short course of muscle relaxer. Reviewed R/B/A of meds. Advised not to take with lorazepam. Continue heat and stretching . Take breaks from the computer during the day. Work on stress reduction. Declines PT at this time. Insomnia [id number] G47.0 0 recent issues with insomnia. Discussed [...] Torres Member ID Guarantor Name 10/18/2016 1 [facility] [id number] Oksana Grimes [id number] Alex Cornelio 10/03/2017 1 [facility]) [id number] Alex Cornelio [id number] Alex Cornelio 10/20/2017 1 [facility] [id number] Alex Cornelio [id number] Alex Cornelio 07/26/2019 1 [facility]) [id number] Alex Cornelio [id number] Alex Grimes 09/26/[address] [place] [address]) [id number] Alex Cornelio [id number] Alexabraham Linki Notes Date Note Type Note Provider Name [...] mild ST today. Ary Lambert NP [address] [place], [address], [facility] 10/18/2016 12:14:02 10/03/2017 text/html Here today with [...] weakness. 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 Ryan Wright MD [address] [place], [address], [facility] 10/03/2017 17:02:16 10/20/2017 text/html Physical Exam/MaleReported bypatient.Lennox [...] high in fiber, fruits and vegetables Exercise counseling:Sarina story the importance of daily physical activity Safety:Counseled about safer sexual practice Ryan Wright MD [address] [place] [address], [phone], [facility] 10/21/2017 11:23:34 07/26/2019 text/html Krystyna. visit to day in follow up. He [...] resume at bedtime.Mood stable. Michelle Bauer PA-C [address] [place] [address], [phone], [facility] 07/26/2019 13:30:55 09/26/2019 text/html Video visit toda [...] day and increased stress. Michelle Bauer PA-C [address] [place] [address], [phone], [facility] 09/26/2019 09:28:27
[2024-04-24 17:13] VITALS: BP 184/120; PULSE 105; RESP 18; TEMP 36.5; O2SAT 99
[2024-04-24] MEDS: cloNIDine HCL 0.1 MG TABLET PO (17:46)
[2024-04-24] MEDS: LORazepam 2 MG/ML VIAL 1 MG IVPUSH (17:46)
[2024-04-24] MEDS: hydrALAZINE HCl 20 MG/ML VIAL 10 MG IVPUSH (17:47)
--- NOTE | 2024-04-24 18:02 | PHA.MEDREC ---
Pharmacy Consult ? Medication Reconciliation Pharmacy has completed the medication reconciliation.
[2024-04-24 19:18] VITALS: BP 170/100
[2024-04-24] MEDS: Acetaminophen 325 MG TABLET 650 MG PO (19:34)
[2024-04-24] MEDS: 0.9 % Sodium Chloride Flush 3 ML SYRINGE IVFLUSH (19:35)
[2024-04-24 21:07] VITALS: BP 140/97; PULSE 118; RESP 17; TEMP 36.7; O2SAT 100
[2024-04-24 23:21] VITALS: BP 144/87; PULSE 119; RESP 18; TEMP 36.6; O2SAT 99
[2024-04-25] MEDS: LORazepam 2 MG/ML VIAL 1 MG IVPUSH ×2 (00:06→05:12)
[2024-04-25 04:00] VITALS: BP 154/90; PULSE 128; RESP 18; TEMP 36.2; O2SAT 96
[2024-04-25 06:25] LABS: MANUAL DIFF FLAG NO
[2024-04-25 06:47] LABS: Anion Gap 14 (12-20); Blood Urea Nitrogen 5 mg/dL (9-16); Calcium 8.9 mg/dL (8.4-10.2); Carbon Dioxide 25 mmol/L (22-29); Chloride 102 mmol/L (96-108); Estimated Glomerular Filt Rate > 60; Glucose Random 75 mg/dL (60-115); Magnesium 2.2 mg/dL (1.6-2.6); Potassium 3.1 mmol/L (3.3-5.1); Sodium 138 mmol/L (135-145)
[2024-04-25 06:48] LABS: Basophils Absolute Auto 0.1 X10*3/uL (0.0-0.2); Basophils Percent Auto 0.7 % (0-2); Eosinophils Absolute Auto 0.4 X10*3/uL (0.0-0.4); Eosinophils Percent Auto 5.7 % (0-4); Hematocrit 42.9 % (42.0-52.0); Hemoglobin 14.6 g/dl (14.0-18.0); Imm Gran Abs Auto 0.02 X10*3/uL (0.00-0.03); Imm Gran Pct Auto 0.3 % (0.0-0.4); Lymphocytes Absolute Auto 2.2 X10*3/uL (1.2-4.9); Mean Corpuscular Hemoglobin 28.2 pg (27.0-33.0); Mean Corpuscular Volume 82.8 fL (80.0-98.0); Mean Platelet Volume 12.7 fL (9.4-12.4); Monocytes Absolute Auto 0.6 X10*3/uL (0.1-1.2); Neutrophils Absolute Auto 3.7 x10*3/uL (2.0-8.3); Neutrophils Percent Auto 52.3 % (45-73); Platelet Count 254 X10*3/uL (160-400); Red Blood Count 5.18 X10*6/uL (4.60-5.80); Red Cell Distribution Width 13.5 % (11.0-16.0)
[2024-04-25 07:04] LABS: Thyroid Stimulating Hormone 1.71 uIU/mL (0.32-4.0)
[2024-04-25 07:05] VITALS: BP 150/82; PULSE 116; RESP 16; TEMP 36.8; O2SAT 99
[2024-04-25] MEDS: Potassium Chloride ER 20 MEQ TAB.ER.PRT 40 MEQ PO (08:00)
[2024-04-25] MEDS: cloNIDine HCL 0.1 MG TABLET PO (08:00)
[2024-04-25] MEDS: 0.9 % Sodium Chloride Flush 3 ML SYRINGE IVFLUSH (08:02)
[2024-04-25 08:49] VITALS: BP 145/95; PULSE 106; RESP 16; TEMP 36.7; O2SAT 99
[2024-04-25 09:21] VITALS: BMI 22.4
--- NOTE | 2024-04-25 12:20 | MHC.CM.PN ---
CM MET WITH PT AT BEDSIDE, PT DECLINES CM ASSESSMENT, JUST WANTS TO SPEAK WITH PSYCH TEAM. CM WILL CONTINUE TO FOLLOW.
[2024-04-25 12:49] VITALS: BP 145/88; PULSE 110; RESP 16; TEMP 36.9; O2SAT 98
[2024-04-25] MEDS: LORazepam 2 MG/ML VIAL 0.25 MG IVPUSH (13:12)
--- NOTE | 2024-04-25 13:47 | P.PNIM_ITS ---
Subjective Subjective Date of Service: 04/25/24 Review of Systems Follow up HTN tx from M5 BP better care team looking for bed Physical Exam 2 Vital Signs: Vital Signs: Last Vital Signs Temp 98.4 F 04/25/24 12:49 Pulse 110 H 04/25/24 12:49 Resp 16 04/25/24 12:49 BP 145/88 H 04/25/24 12:49 Pulse Ox 98 04/25/24 12:49 O2 Del Method Room Air 04/25/24 12:49 BMI result Body Mass Index 22.4 Objective Data Active Medications Acetaminophen (Acetaminophen 325 Mg Tablet) 650 mg PO Q6H PRN PRN Reason: Pain, Mild 1-3,fever,headache Last Admin: 04/24/24 19:34 Dose: 650 mg Documented By: ISAMAR Calcium Carbonate (Calcium Carbonate 750 Mg Tab.Chew) 750 mg PO Q4H PRN PRN Reason: Heartburn Clonidine HCl (Clonidine Hcl 0.1 Mg Tablet) 0.1 mg PO DAILY [facility]; Protocol Last Admin: 04/25/24 08:00 Dose: 0.1 mg Documented By: JAED Hydralazine HCl (Hydralazine Hcl 20 Mg/Ml Vial) 10 mg IVPUSH Q4H PRN; Protocol PRN Reason: SBP>190 Last Admin: 04/24/24 17:47 Dose: 10 mg Documented By: JADE Lorazepam (Lorazepam 2 Mg/Ml Vial) 1 mg IVPUSH Q4H PRN PRN Reason: Anxiety Last Admin: 04/25/24 05:12 Dose: 1 mg Documented By: ISAMAR Magnesium Hydroxide (Milk Of Magnesia 30 Ml Oral.Susp) 30 ml PO DAILY PRN PRN Reason: Constipation Melatonin (Melatonin 3 Mg Tablet) 6 mg PO BEDTIME PRN PRN Reason: Insomnia Ondansetron HCl (Ondansetron Hcl 4 Mg/2 Ml Vial) 4 mg IVPUSH Q8H PRN PRN Reason: Nausea and Vomiting Sodium Chloride (0.9 % Sodium Chloride Flush 3 Ml Syringe) [facility] Last Admin: 04/25/24 08:02 Dose: 3 ml Documented By: JADE Labs 04/25/24 05:07 04/25/24 05:07 Labs: Laboratory Results - last 24 hr 04/25/24 05:07 MCV 82.8 MCH 28.2 MCHC 34.0 RDW 13.5 Plt Count 254 MPV 12.7 H Immature Gran % (Auto) 0.3 Neut % (Auto) 52.3 Lymph % (Auto) 32.0 Norman % (Auto) 9.0 Eos % (Auto) 5.7 H Baso % (Auto) 0.7 Lymph # (Auto) 2.2 Norman # (Auto) 0.6 Eos # (Auto) 0.4 Baso # (Auto) 0.1 Abs Immat Gran (auto) 0.02 Absolute Neuts (auto) 3.7 Absolute Nucleated RBC 0.000 Nucleated RBC % (auto) 0.0 Anion Gap 14 Estim Creat Clear Calc TNP Estimated GFR > 60 Random Glucose 75 Calcium 8.9 Magnesium 2.2 TSH 1.71 Assessment and Plan (1) Acute psychosis: Status: Acute (2) Hypertension: Status: Acute Plan 28-year-old man transferred from due to hypertensive urgency with systolic blood pressure as high as 200 with patient reporting headache and ?floaters?. Hypertensive urgency. Resolved s/p security monitor continue clonidine Hydralazine for systolic blood pressure greater than 190 Encouraged sleep No caffeine diet Tachycardia Likely component of anxiety and baseline EKG showing sinus tach with normal range QTC Hypokalemia repleted Acute psychosis Psychiatric team to help manage Lorazepam p.r.n. medically clear, Care team consulted DVT prophylaxis with early ambulation Attending Dr. Mariee Full code Quality Stroke Does the patient have a stroke diagnosis?: No VTE Prior VTE?: No VTE Risk Level:: Medical - low VTE Device Contraindication: Treatment Not Indicated VTE Drug Contraindication: Treatment Not Indicated
--- NOTE | 2024-04-25 14:02 | MHC.CARE ---
Pt assessed by the CARE Team and found IPLOC.
--- NOTE | 2024-04-25 14:15 | P.DS_ITS ---
DS: Providers Provider Date of Service: 04/25/24 Date of admission: 04/24/24 16:52 Date of discharge: 04/25/24 Primary care physician: Unknown Physician Consults: 04/24/24 17:49 Consult to Psychiatry Routine Consulting Provider: [facility] Psych Covering Reason for consultation: Acute psychosis transferred for hypertension 04/24/24 18:32 Consult to Wound Care Routine Reason for consultation: abrasion bi knee 04/25/24 10:30 Inpt CARE Team Crisis Consult Routine Comment: Reason for consultation: medically clear DS: Diagnosis Discharge Diagnosis (1) Acute psychosis: Status: Acute (2) Hypertension: Status: Acute DS: Summary Hospital Course Hospital Course: HP as per admitting provider. 28-year-old man with a history of Asperger's admitted to for rose marie, anxiety. He was noted to have elevated blood pressure readings since admission that were waxing and waning. Today patient's blood pressure was as high as 203/107 and he reported ?floaters? and headache. When asked again about these things he stated that they are both chronic. He was also noted to be tachycardic with heart rate in the 110's. Because of patient's rose marie was difficult to assess. I discussed with his mother and grandmother. They reported that the patient had moved to [place] in 2019 and got . They had not discussed a lot of his medical issues and were really unsure if he has been taking any medications for mental illness or not. His mother reported that he came back to [place] in January of 2024 and was in the process of filing for divorce. She reported that he has been drinking alcohol on a regular basis around that time but had quickly stopped within about a month. In March he started drinking a lot of espresso coffee and energy drinks. His mother and grandmother had not known at the time that the patient has been talking to an online therapist/provider and was started on Cymbalta 10 mg daily. He was also taking flexeril for body and neck pain. Over the last week and a half his mother and grandmother noted that he had not slept for more than 6-8 hours within that time he was perseverating, doing multiple things in the home without finishing. They filed a section 12 and he ended up in the emergency department. From there he went to and from he was transferred to the medical-surgical floor for management of hypertension. Hypertensive urgency. Resolved s/p nuclear monitoring technician continue clonidine Treated with IV Hydralazine for systolic blood pressure greater than 190 Encouraged sleep No caffeine diet Tachycardia Likely component of anxiety and baseline EKG showing sinus tach with normal range QTC Hypokalemia repleted Acute psychosis Transfer to M3 for psychiatric care Lorazepam p.r.n. Time Attestation Discharge Coordination Time (in mins): 40 Quality: Safe Use of Opioids Does Pt have an Active Cancer Diagnosis on the Problem List?: No Quality: Stroke Does the patient have a stroke diagnosis?: No Physical Exam Vital Signs: Vital Signs: Last Vital Signs Temp 98.4 F 04/25/24 12:49 Pulse 110 H 04/25/24 12:49 Resp 16 04/25/24 12:49 BP 145/88 H 04/25/24 12:49 Pulse Ox 98 04/25/24 12:49 O2 Del Method Room Air 04/25/24 12:49 BMI result Body Mass Index 22.4 Appearing in no acute distress head is normocephalic atraumatic eyes pupils are PERRLA sclera is anicteric mouth throat mucous membranes are intact and moist neck is supple no lymphadenopathy, no JVD noted lung sounds are clear to auscultation heart regular rate rhythm, clear S1, S2 positive bowel sounds, abdomen is soft, nontender neuro patient is alert x3, no focal deficits DS: Data Data Completed and Pending Labs on day of discharge: Laboratory Results - last 24 hr 04/25/24 05:07 WBC 7.0 RBC 5.18 Hgb 14.6 Hct 42.9 MCV 82.8 MCH 28.2 MCHC 34.0 RDW 13.5 Plt Count 254 MPV 12.7 H Immature Gran % (Auto) 0.3 Neut % (Auto) 52.3 Lymph % (Auto) 32.0 Bill[place] % (Auto) 9.0 Eos % (Auto) 5.7 H Baso % (Auto) 0.7 Lymph # (Auto) 2.2 [place] # (Auto) 0.6 Eos # (Auto) 0.4 Baso # (Auto) 0.1 Abs Immat Gran (auto) 0.02 Absolute Neuts (auto) 3.7 Absolute Nucleated RBC 0.000 Nucleated RBC % (auto) 0.0 Sodium 138 Potassium 3.1 L Chloride 102 Carbon Dioxide 25 Anion Gap 14 BUN 5 L Creatinine 0.73 Estim Creat Clear Calc TNP Estimated GFR > 60 Random Glucose 75 Calcium 8.9 Magnesium 2.2 TSH 1.71 Discharge Plan Discharge Anticipated Discharge Date/Time: 04/25/24 14:09 Patient Disposition: Xfer Psychiatric Hosp Discharge Diagnosis: Hypertensive urgency Discharge Medications: New clonidine HCl 0.1 mg Tablet 0.1 mg PO DAILY Qty: 30 0RF Protocol: Hold for SBP< HOLD for SBP < : 90 Continued lorazepam 0.5 mg Tablet 0.25 mg PO Q4H PRN (Reason: any kind of anxiety) Qty: 0 0RF divalproex 500 mg Tablet Extended Release 24 Hr 500 mg PO BEDTIME Qty: 0 0RF Discharge Orders: Discharge Order (Routine); Ordered 04/25/24 Ordered By: Yenifer Lott Diet: Advance to usual diet Activity on Discharge: As tolerated Stand Alone Forms: Patient Portal Discharge page Print Language: [place] [facility] Concerns: Hypertensive urgency Plan of Treatment: Follow-up with primary care provider when discharged from psychiatric care Take all medications as prescribed Assessment: See discharge summary
--- NOTE | 2024-04-25 15:20 | MHC.CM.PN ---
DP: TRANSFER BACK TO PSYCH UNIT AFTER CARE TEAM ASSESSMENT FOUND IPLOC
== END 2024-04-25 15:09 | DRG 305 ==
PROVIDERS: Admitting Provider Nurse Practitioner Acute Care; Visit Provider Nurse Practitioner Acute Care
DX: I16.0 Hypertensive urgency (principal); F84.0 Autistic disorder; F23 Brief psychotic disorder; E87.6 Hypokalemia; F41.9 Anxiety disorder, unspecified; I10 Essential (primary) hypertension; Z79.899 Other long term (current) drug therapy
CPT/HCPCS: 36415; 80048; 83735; 84443; 85025; 93005; 99221; J0360; J2060; S9485

== ENCOUNTER → 2024-04-24 16:52 | Outpatient (BNV) | payer OTHER, SELFPAY | PROVIDERS: Admitting Provider Nurse Practitioner Acute Care; Visit Provider Nurse Practitioner Acute Care | DX: I10 Essential (primary) hypertension (principal); F23 Brief psychotic disorder | CPT/HCPCS: 99239; 99499 ==

== ENCOUNTER 2024-04-25 14:47 | Inpatient (IN) | payer OTHER, SELFPAY ==
[2024-04-25 15:30] VITALS: BP 146/94; PULSE 112; RESP 16; TEMP 36.9; O2SAT 98
[2024-04-25] MEDS: Miconazole Nitrate 2% Powder 85 GM Bottle 1 APPL TOPICAL (18:02)
--- NOTE | 2024-04-25 18:36 | PC.NURSE ---
Alex was admitted to M3? at 1525? [place] [facility] [place] [place] [facility] for treatment of bipolar disorder and Asperger?s Disorder. Prior to recent admission to M5? family reported pt had no sleep x 5 days, was hyperverbal and ?out of touch with reality?.? On M5 Pt became symptomatically hypertensive and was admitted to medical. Today he was medically cleared and readmitted to psych. Pt is on 12B. He declines to participate in admission process. He is hyperverbal with repetitive but polite requests of staff.?? He declined to fill out menu, ?I won?t be eating here.?? He denies use of substances. He denies physical complaint. He denies ideation, plan or intent to harm self or others.? He states his goal of admission is to ? leave now?? Safety Checks are q 15 minutes.
[2024-04-25 20:30] VITALS: RESP 18; TEMP 36.4; O2SAT 100
[2024-04-25 20:34] VITALS: BP 172/102; PULSE 111; RESP 18; TEMP 2.4; TEMP 36.4; O2SAT 100
[2024-04-25] MEDS: LORazepam 1 MG TABLET PO (20:36)
[2024-04-25] MEDS: cloNIDine HCL 0.1 MG TABLET PO (20:37)
[2024-04-26] MEDS: LORazepam 1 MG TABLET PO (04:30)
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
[2024-04-26 07:00] VITALS: BMI 23.5
[2024-04-26 07:43] VITALS: BP 169/98; PULSE 104; RESP 16; TEMP 36.7; O2SAT 100
[2024-04-26 08:00] VITALS: BP 169/98; PULSE 104; RESP 16; TEMP 36.7; O2SAT 100
[2024-04-26] MEDS: cloNIDine HCL 0.1 MG TABLET PO ×2 (08:24→14:53)
[2024-04-26] MEDS: Miconazole Nitrate 2% Powder 85 GM Bottle 1 APPL TOPICAL ×2 (08:37→21:01)
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
[2024-04-26 14:53] VITALS: BP 192/100
--- NOTE | 2024-04-26 17:40 | PC.NURSE ---
This patient has requested an emergency hearing for his 12b status. This headline writer called [facility] at: [phone] and left them all the required information. She then notified Regina Andraed, Orestes Ware, and Richard Moore via email, about this request and action taken.
[2024-04-26 20:00] VITALS: BP 139/87; PULSE 106; RESP 16; TEMP 36.2; O2SAT 99
[2024-04-27 08:10] VITALS: BP 171/108; PULSE 99; RESP 14; TEMP 36.6; O2SAT 100
[2024-04-27] MEDS: Miconazole Nitrate 2% Powder 85 GM Bottle 1 APPL TOPICAL (08:43)
[2024-04-27 12:05] VITALS: BP 175/105; PULSE 87; O2SAT 100
[2024-04-27] MEDS: cloNIDine HCL 0.1 MG TABLET PO ×2 (12:10→17:08)
--- NOTE | 2024-04-27 14:01 | HO.PSYCHPN ---
Subjective Subjective Date of Service: 04/27/24 Reason For Visit: Mental Health Emergency Interim History: visible in milieu. talkative with others. 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 per staff, dismissive. entitled. refused HS meds. used at least 10 pairs of socks. has fungal foot infection. Mental Status Exam Mental Status Exam Narrative: Pt is alert and oriented; behavior is manic, hyperverbal; patient is not in distress; dressed in blazer and jeans, with unkempt hair but adequate hygiene; mood is not assessed; affect is hyper-intense, non-labile; eye contact appropriate; Speech increase in rate and amount, decr latency; mild psychomotor agitation present; thought process linear in very brief interview; no clear delusional content; no SI/HI/AVH expressed. Patients insight and judgment impaired Diagnostics Vital Signs (24Hr): Vital Signs - 24 hr 04/26/24 14:53 04/26/24 20:00 04/27/24 08:10 Temperature 97.2 F 97.9 F Pulse Rate 106 H 99 Respiratory Rate 16 14 Blood Pressure 192/100 H 139/87 171/108 H Pulse Oximetry 99 100 Oxygen Delivery Method Room Air Room Air 04/27/24 12:05 Temperature Pulse Rate 87 Respiratory Rate Blood Pressure 175/105 H Pulse Oximetry 100 Oxygen Delivery Method Room Air BMI result Body Mass Index 23.5 Medications Medications Current Medications Acetaminophen (Acetaminophen 325 Mg Tablet) 650 mg PO Q6H PRN PRN Reason: Headache/Pain, Scale 1-10 Al Hydroxide/Mg Hydroxide (Magnesium Hydrox/Alum Hydrox 30 Ml Oral.Susp) 30 ml PO Q6H PRN PRN Reason: Heartburn/Nausea Clonidine HCl (Clonidine Hcl 0.1 Mg Tablet) 0.1 mg PO TID [facility]; Protocol Last Admin: 04/27/24 12:10 Dose: 0.1 mg Divalproex Sodium (Divalproex Sodium Er 500 Mg Tab.Er.24h) 1,000 mg PO BEDTIME [facility] Last Admin: 04/26/24 21:06 Dose: Not Given Hydroxyzine HCl (Hydroxyzine Hcl 25 Mg Tablet) 25 mg PO Q6H PRN PRN Reason: mild anxiety Lorazepam (Lorazepam 1 Mg Tablet) 1 mg PO QID [facility] Last Admin: 04/27/24 13:55 Dose: Not Given Magnesium Hydroxide (Milk Of Magnesia 30 Ml Oral.Susp) 30 ml PO DAILY PRN PRN Reason: Constipation Miconazole Nitrate (Miconazole Nitrate 2% Powder 85 Gm Bottle) 1 appl TOPICAL BID [facility]; Protocol Last Admin: 04/27/24 08:43 Dose: 1 appl Nicotine Polacrilex (Nicotine Polacrilex 2 Mg Gum) 4 mg BUCCAL Q2H PRN PRN Reason: Nicotine Cravings Trazodone HCl (Trazodone Hcl 50 Mg Tablet) 50 mg PO BEDTIME MRX1 PRN PRN Reason: Insomnia Allergies Allergies Allergy/AdvReac Type Severity Reaction Status Date / Time sumatriptan [From IMITREX] AdvReac Intermediate SEROTONIN Verified 04/23/24 02:39 SYNDROME Assessment & Plan Assessment & Plan (1) Autism: Status: Acute Code(s): F84.0 - Autistic disorder (2) Bipolar I disorder: Status: Acute Code(s): F31.9 - Bipolar disorder, unspecified (3) Hypertension: Status: Acute Code(s): I10 - Essential (primary) hypertension Plan 04/26: clonidine 0.1 mg TID for HTN. VPA 1000 QHS for rose marie. ativan PRN agitation. 12b up tuesday. 04/27: pt refusing meds. schedule ativan, which he had been asking for, in hopes it will allow him to be better compliant with clonidine, as his BPs have been quite elevated. declines to meet with MD today. no change in presentation otherwise. making many calls of complaint to family and [facility] employees. Reason for continued inpatient stay Substantial Risk for: inability to function Time Spent With Patient Time: Total time managing care of this patient today __25__ minutes.
[2024-04-27] MEDS: LORazepam 1 MG TABLET PO ×2 (14:26→16:14)
[2024-04-27] MEDS: Divalproex Sodium 500 MG TABLET.DR PO (15:18)
[2024-04-27 16:00] VITALS: BP 162/89; PULSE 97
[2024-04-27 17:08] VITALS: BP 155/103
[2024-04-27 20:00] VITALS: RESP 15
[2024-04-28] MEDS: Divalproex Sodium ER 500 MG TAB.ER.24H 1000 MG PO (00:40)
[2024-04-28 00:42] VITALS: BP 129/89
[2024-04-28] MEDS: cloNIDine HCL 0.1 MG TABLET PO ×3 (00:42→15:45)
[2024-04-28] MEDS: LORazepam 1 MG TABLET PO ×3 (00:43→13:04)
[2024-04-28] MEDS: traZODone HCL 50 MG TABLET PO (00:43)
[2024-04-28 07:50] VITALS: BP 136/75; PULSE 99; RESP 14; TEMP 36; O2SAT 100
--- NOTE | 2024-04-28 09:12 | P.PNPSI_ITS ---
Subjective Subjective Date of Service: 04/28/24 Reason For Visit: Mental Health Emergency Subjective Notes: Section 12B Interim History: Patient was seen and discussed in rounds today. Records and plans were reviewed. He continues to be flat, somewhat labile and guarded. He is mostly withdrawn but has been coming out more and interacting with others. He is taking medications. He is demanding and entitled times. Some manipulative behaviors reported also. No dangerous behaviors. Eating and sleeping adequately. No changes were made today Review of Systems Review of Systems Yes all other systems are reviewed and are negative Mental Status Exam Mental Status Exam Narrative: In today's visit he is alert, pleasant and responsive with 1 or 2 word answers. Speech is soft-spoken. Moderate eye contact. Affect is appropriate and contained. No acute signs of psychosis. Cognitively his grossly intact. No SI/HI/AVH. Able to move all limbs and no abnormalities of gait observed. Judgment is reported to be impaired. Diagnostics Vital Signs (24Hr): Vital Signs - 24 hr 04/27/24 12:05 04/27/24 16:00 04/27/24 17:08 Temperature Pulse Rate 87 97 Respiratory Rate Blood Pressure 175/105 H 162/89 H 155/103 H Pulse Oximetry 100 Oxygen Delivery Method Room Air 04/27/24 20:00 04/28/24 00:42 04/28/24 07:50 Temperature 96.8 F Pulse Rate 99 Respiratory Rate 15 14 Blood Pressure 129/89 136/75 Pulse Oximetry 100 Oxygen Delivery Method Room Air BMI result Body Mass Index 23.5 Medications Medications Current Medications Acetaminophen (Acetaminophen 325 Mg Tablet) 650 mg PO Q6H PRN PRN Reason: Headache/Pain, Scale 1-10 Al Hydroxide/Mg Hydroxide (Magnesium Hydrox/Alum Hydrox 30 Ml Oral.Susp) 30 ml PO Q6H PRN PRN Reason: Heartburn/Nausea Clonidine HCl (Clonidine Hcl 0.1 Mg Tablet) 0.1 mg PO TID [facility]; Protocol Last Admin: 04/28/24 00:42 Dose: 0.1 mg Divalproex Sodium (Divalproex Sodium Er 500 Mg Tab.Er.24h) 1,000 mg PO BEDTIME [facility] Last Admin: 04/28/24 00:40 Dose: 1,000 mg Hydroxyzine HCl (Hydroxyzine Hcl 25 Mg Tablet) 25 mg PO Q6H PRN PRN Reason: mild anxiety Lorazepam (Lorazepam 1 Mg Tablet) 1 mg PO QID [facility] Last Admin: 04/28/24 00:43 Dose: 1 mg Magnesium Hydroxide (Milk Of Magnesia 30 Ml Oral.Susp) 30 ml PO DAILY PRN PRN Reason: Constipation Miconazole Nitrate (Miconazole Nitrate 2% Powder 85 Gm Bottle) 1 appl TOPICAL BID [facility]; Protocol Last Admin: 04/27/24 23:39 Dose: Not Given Nicotine Polacrilex (Nicotine Polacrilex 2 Mg Gum) 4 mg BUCCAL Q2H PRN PRN Reason: Nicotine Cravings Trazodone HCl (Trazodone Hcl 50 Mg Tablet) 50 mg PO BEDTIME MRX1 PRN PRN Reason: Insomnia Last Admin: 04/28/24 00:43 Dose: 50 mg Allergies Allergies Allergy/AdvReac Type Severity Reaction Status Date / Time sumatriptan [From IMITREX] AdvReac Intermediate SEROTONIN Verified 04/23/24 02:39 SYNDROME Assessment & Plan Assessment & Plan (1) Autism: Status: Acute Code(s): F84.0 - Autistic disorder (2) Bipolar I disorder: Status: Acute Code(s): F31.9 - Bipolar disorder, unspecified (3) Hypertension: Status: Acute Code(s): I10 - Essential (primary) hypertension Plan 04/26: clonidine 0.1 mg TID for HTN. VPA 1000 QHS for rose marie. ativan PRN agitation. 12b up tuesday. 04/27: pt refusing meds. schedule ativan, which he had been asking for, in hopes it will allow him to be better compliant with clonidine, as his BPs have been quite elevated. declines to meet with MD today. no change in presentation otherwise. making many calls of complaint to family and [facility] employees. 04/28: Continue current regimen and plans Reason for continued inpatient stay Substantial Risk for: med/psych decompensation Time Spent With Patient Time: Total time managing care of this patient today ____ minutes.
[2024-04-28 09:35] VITALS: BP 162/87; PULSE 104
[2024-04-28 15:22] VITALS: BP 127/75; PULSE 93
[2024-04-28 20:00] VITALS: BP 120/80; PULSE 106; RESP 18; TEMP 35.9; O2SAT 100
[2024-04-29 02:49] VITALS: BP 141/79; PULSE 83; RESP 16; TEMP 36.2; O2SAT 100
[2024-04-29] MEDS: Acetaminophen 325 MG TABLET 650 MG PO ×2 (07:18→14:23)
[2024-04-29 08:00] VITALS: BP 137/83; PULSE 87; RESP 16; TEMP 36.7; O2SAT 99
[2024-04-29] MEDS: cloNIDine HCL 0.1 MG TABLET PO ×3 (08:46→21:23)
[2024-04-29] MEDS: LORazepam 1 MG TABLET PO ×4 (08:46→21:23)
--- NOTE | 2024-04-29 09:42 | P.PNPSI_ITS ---
Subjective Subjective Date of Service: 04/29/24 Reason For Visit: Mental Health Emergency Subjective Notes: Section 12B Interim History: Patient was seen and discussed in rounds today. Records and plans were reviewed. He talked at length about his diagnosis, questions and concerns about it and I tried to educate him as much as I could about it. He has been eating and sleeping adequately. No complaints or side effects. No SI. No changes were made today Review of Systems Review of Systems Yes all other systems are reviewed and are negative Mental Status Exam Mental Status Exam Narrative: In today's visit he is alert, pleasant and responsive, he wanted to have a long discussion about his diagnosis, symptoms and what he has recently read about it.. Speech is soft-spoken. Moderate eye contact. Affect is appropriate and contained. No acute signs of psychosis. No signs of hypomania. Cognitively is grossly intact. No SI/HI/AVH. Able to move all limbs and no abnormalities of gait observed. Judgment is reported to be impaired. Diagnostics Vital Signs (24Hr): Vital Signs - 24 hr 04/28/24 15:22 04/28/24 20:00 04/29/24 02:49 Temperature 96.6 F L 97.1 F Pulse Rate 93 106 H 83 Respiratory Rate 18 16 Blood Pressure 127/75 120/80 141/79 H Pulse Oximetry 100 100 Oxygen Delivery Method Room Air Room Air 04/29/24 08:00 Temperature 98.0 F Pulse Rate 87 Respiratory Rate 16 Blood Pressure 137/83 Pulse Oximetry 99 Oxygen Delivery Method Room Air BMI result Body Mass Index 23.5 Medications Medications Current Medications Acetaminophen (Acetaminophen 325 Mg Tablet) 650 mg PO Q6H PRN PRN Reason: Headache/Pain, Scale 1-10 Last Admin: 04/29/24 07:18 Dose: 650 mg Al Hydroxide/Mg Hydroxide (Magnesium Hydrox/Alum Hydrox 30 Ml Oral.Susp) 30 ml PO Q6H PRN PRN Reason: Heartburn/Nausea Clonidine HCl (Clonidine Hcl 0.1 Mg Tablet) 0.1 mg PO TID [facility]; Protocol Last Admin: 04/29/24 08:46 Dose: 0.1 mg Divalproex Sodium (Divalproex Sodium Er 500 Mg Tab.Er.24h) 1,000 mg PO BEDTIME [facility] Last Admin: 04/28/24 00:40 Dose: 1,000 mg Hydroxyzine HCl (Hydroxyzine Hcl 25 Mg Tablet) 25 mg PO Q6H PRN PRN Reason: mild anxiety Lorazepam (Lorazepam 1 Mg Tablet) 1 mg PO QID [facility] Last Admin: 04/29/24 08:46 Dose: 1 mg Magnesium Hydroxide (Milk Of Magnesia 30 Ml Oral.Susp) 30 ml PO DAILY PRN PRN Reason: Constipation Miconazole Nitrate (Miconazole Nitrate 2% Powder 85 Gm Bottle) 1 appl TOPICAL BID [facility]; Protocol Last Admin: 04/29/24 08:48 Dose: Not Given Nicotine Polacrilex (Nicotine Polacrilex 2 Mg Gum) 4 mg BUCCAL Q2H PRN PRN Reason: Nicotine Cravings Trazodone HCl (Trazodone Hcl 50 Mg Tablet) 50 mg PO BEDTIME MRX1 PRN PRN Reason: Insomnia Last Admin: 04/28/24 00:43 Dose: 50 mg Allergies Allergies Allergy/AdvReac Type Severity Reaction Status Date / Time sumatriptan [From IMITREX] AdvReac Intermediate SEROTONIN Verified 04/23/24 02:39 SYNDROME Assessment & Plan Assessment & Plan (1) Autism: Status: Acute Code(s): F84.0 - Autistic disorder (2) Bipolar I disorder: Status: Acute Code(s): F31.9 - Bipolar disorder, unspecified (3) Hypertension: Status: Acute Code(s): I10 - Essential (primary) hypertension Plan 04/26: clonidine 0.1 mg TID for HTN. VPA 1000 QHS for rose marie. ativan PRN agitation. 12b up tuesday. 04/27: pt refusing meds. schedule ativan, which he had been asking for, in hopes it will allow him to be better compliant with clonidine, as his BPs have been quite elevated. declines to meet with MD today. no change in presentation otherwise. making many calls of complaint to family and [facility] employees. 04/28: Continue current regimen and plans 04/29: Continue current regimen and plans. Patient educated on: diagnosis Reason for continued inpatient stay Substantial Risk for: med/psych decompensation Time Spent With Patient Time: Total time managing care of this patient today ____ minutes.
[2024-04-29 15:33] VITALS: BP 164/92
[2024-04-29] MEDS: Nicotine Polacrilex 2 MG GUM 4 MG BUCCAL (16:33)
[2024-04-29 20:38] VITALS: BP 132/72; PULSE 77; RESP 16; TEMP 36.3; O2SAT 100
[2024-04-29] MEDS: traZODone HCL 50 MG TABLET PO (21:23)
[2024-04-29] MEDS: Divalproex Sodium ER 500 MG TAB.ER.24H 1000 MG PO (21:23)
[2024-04-30 08:00] VITALS: BP 130/67; PULSE 87; RESP 16; TEMP 36.3; O2SAT 100
--- NOTE | 2024-04-30 08:37 | P.PNPSI_ITS ---
Subjective Subjective Date of Service: 04/30/24 Reason For Visit: Mental Health Emergency Subjective Notes: Section 12B Interim History: Patient was seen and discussed in rounds today. Records and plans were reviewed. He has been stable with no major mood fluctuations. No incidents reported. Eating and sleeping adequately. He is requesting Flexeril which he uses for neck and head pain. 10 mg b.i.d. p.r.n. ordered. No SI. No side effects. No other changes or additions were made today Review of Systems Review of Systems Headache/neck pain Yes all other systems are reviewed and are negative Mental Status Exam Mental Status Exam Narrative: In today's visit he is alert, pleasant and responsive, he wanted to have a long discussion about his diagnosis, symptoms and what he has recently read about it.. Speech is soft-spoken. Moderate eye contact. Affect is appropriate and c ontained. No acute signs of psychosis. No signs of hypomania. Cognitively is grossly intact. No SI/HI/AVH. Able to move all limbs and no abnormalities of gait observed. Judgment is reported to be impaired. Diagnostics Vital Signs (24Hr): Vital Signs - 24 hr 04/29/24 15:33 04/29/24 20:38 04/30/24 08:00 Temperature 97.3 F 97.4 F Pulse Rate 77 87 Respiratory Rate 16 16 Blood Pressure 164/92 H 132/72 130/67 Pulse Oximetry 100 100 Oxygen Delivery Method Room Air Room Air BMI result Body Mass Index 23.5 Medications Medications Current Medications Acetaminophen (Acetaminophen 325 Mg Tablet) 650 mg PO Q6H PRN PRN Reason: Headache/Pain, Scale 1-10 Last Admin: 04/29/24 14:23 Dose: 650 mg Al Hydroxide/Mg Hydroxide (Magnesium Hydrox/Alum Hydrox 30 Ml Oral.Susp) 30 ml PO Q6H PRN PRN Reason: Heartburn/Nausea Clonidine HCl (Clonidine Hcl 0.1 Mg Tablet) 0.1 mg PO TID TYREE; Protocol Last Admin: 04/29/24 21:23 Dose: 0.1 mg Divalproex Sodium (Divalproex Sodium Er 500 Mg Tab.Er.24h) 1,000 mg PO BEDTIME TYREE Last Admin: 04/29/24 21:23 Dose: 1,000 mg Hydroxyzine HCl (Hydroxyzine Hcl 25 Mg Tablet) 25 mg PO Q6H PRN PRN Reason: mild anxiety Lorazepam (Lorazepam 1 Mg Tablet) 1 mg PO QID TYREE Last Admin: 04/29/24 21:23 Dose: 1 mg Magnesium Hydroxide (Milk Of Magnesia 30 Ml Oral.Susp) 30 ml PO DAILY PRN PRN Reason: Constipation Miconazole Nitrate (Miconazole Nitrate 2% Powder 85 Gm Bottle) 1 appl TOPICAL BID TYREE; Protocol Last Admin: 04/29/24 21:30 Dose: Not Given Nicotine Polacrilex (Nicotine Polacrilex 2 Mg Gum) 4 mg BUCCAL Q2H PRN PRN Reason: Nicotine Cravings Last Admin: 04/29/24 16:33 Dose: 4 mg Tetrahydrozoline HCl (Tetrahydrozoline Hcl 0.05% Oph 15 Ml Drpbtl) 2 drop EYE- BOTH QID PRN PRN Reason: Dry Eyes Trazodone HCl (Trazodone Hcl 50 Mg Tablet) 50 mg PO BEDTIME MRX1 PRN PRN Reason: Insomnia Last Admin: 04/29/24 21:23 Dose: 50 mg Allergies Allergies Allergy/AdvReac Type Severity Reaction Status Date / Time sumatriptan [From IMITREX] AdvReac Intermediate SEROTONIN Verified 04/23/24 0 2:39 SYNDROME Assessment & Plan Assessment & Plan (1) Autism: Status: Acute Code(s): F84.0 - Autistic disorder (2) Bipolar I disorder: Status: Acute Code(s): F31.9 - Bipolar disorder, unspecified (3) Hypertension: Status: Acute Code(s): I10 - Essential (primary) hypertension Plan 04/26: clonidine 0.1 mg TID for HTN. VPA 1000 QHS for rose marie. ativan PRN agitation. 12b up tuesday. 04/27: pt refusing meds. schedule ativan, which he had been asking for, in hopes it will allow him to be better compliant with clonidine, as his BPs have been quite elevated. declines to meet with MD today. no change in presentation otherwise. making many calls of complaint to family and [employer] [facility] employees. 04/28: Continue current regimen and plans 04/29: Continue current regimen and plans. 04/30: Continue current regimen and plans. Added Flexeril 10 mg b.i.d. p.r.n. Guardian/Caregiver educated on: medication risk/benefits Reason for continued inpatient stay Substantial Risk for: med/psych decompensation Time Spent With Patient Time: Total time managing care of this patient today ____ minutes.
[2024-04-30] MEDS: Cyclobenzaprine HCl 10 MG TABLET PO (10:15)
[2024-04-30] MEDS: LORazepam 1 MG TABLET PO ×4 (10:16→20:14)
[2024-04-30] MEDS: cloNIDine HCL 0.1 MG TABLET PO ×3 (10:16→20:14)
[2024-04-30 15:30] VITALS: BP 150/73
[2024-04-30 19:50] VITALS: BP 123/77; PULSE 89; RESP 16; TEMP 36.6; O2SAT 100
[2024-04-30] MEDS: Divalproex Sodium ER 500 MG TAB.ER.24H 1000 MG PO (20:14)
[2024-04-30] MEDS: traZODone HCL 50 MG TABLET PO (20:14)
[2024-05-01 08:00] VITALS: BP 136/67; PULSE 133; RESP 18; TEMP 36.2; O2SAT 100
[2024-05-01] MEDS: Cyclobenzaprine HCl 10 MG TABLET PO (08:07)
[2024-05-01] MEDS: LORazepam 1 MG TABLET PO (08:15)
[2024-05-01] MEDS: cloNIDine HCL 0.1 MG TABLET PO (08:15)
--- NOTE | 2024-05-01 10:21 | P.DS_ITS ---
DS: Providers Provider Date of Service: 05/01/24 Date of admission: 04/25/24 14:47 Date of discharge: 05/01/24 Primary care physician: Unknown Physician DS: Diagnosis Discharge Diagnosis (1) Autism: Status: Acute (2) Bipolar I disorder: Status: Acute (3) Hypertension: Status: Acute DS: Medications Discharge Medications Home Medications: Previous Rx's ?Medication ?Instructions ?Recorded clonidine HCl 0.1 mg tablet 0.1 mg PO TID 30 days #90 tabs 05/01/24 cyclobenzaprine 10 mg tablet 10 mg PO BID PRN Pain, 05/01/24 Moderate(Pain Scale 4-6) 10 days #20 tabs lorazepam 1 mg tablet 1 mg PO TID 30 days #90 tabs 05/01/24 miconazole nitrate 2 % topical 1 appl topical BID 15 days #85 05/01/24 powder (Micro-Guard) grams trazodone 50 mg tablet 50 mg PO BEDTIME PRN Insomnia 30 05/01/24 days #30 tabs valproic acid 250 mg capsule 500 mg (2 x 250 mg) PO BID 30 days 05/01/24 #120 caps Mental Status Exam Mental Status Exam Narrative: In today's visit he is alert, pleasant and responsive. Speech is incr rate and amount, nml loudness, decr latency. Moderate eye contact. Affect is appropriate and contained. No acute signs of psychosis. No signs of hypomania. Cognitively is grossly intact. No SI/HI/AVH. Able to move all limbs and no abnormalities of gait observed. Judgment is reported to be impaired. DS: Summary Hospital Course Hospital Course: per 04/26 admission note: HPI Subjective Notes: Garcia Warning (provided yesterday when legal status was reviewed with patient) Narrative: pt was initially admitted to on 04/24, transferred to medicine same day, then referred to psychiatry once again on 04/25. per josef 04/24 discharge summary: Hospital Course: Patient is a 28 yo male, with hx of ASD, who presents after family called 911 due to patient's manic symptoms and disorganized behaviors in the community possibly triggered by restarting Cymbalta. Patient is with pressured speech, rambling, jumping from idea to idea and is thus a limited historian. Regarding events that led him to this admission, patient said he was living in [place] for 3 years during which time he was not taking any medication, including Cymbalta; it seems he came back to [place] a few weeks ago at which time he restarted Cymbalta. Patient introduces himself and says he understands ev erything, all about psychiatry and he trusts us implicitly. Sitting down, he rambles about the psychology of feeling cornered but physically not knowing...... I trust you implicitly.. I see this meeting as myself.. I understand all this is voluntary... have you ever been in love? Either of you?... Patient talked about how he was in a bad marriage for 3 years which he starting his body; says he was traumatized in [place].. He then says he was traumatized in [employer] when he was talking to a man and then his legs start to cramp up... Patient is upset with his parents, saying they did not understand him; he was upset because he could not clear out the living room and watch television as he wanted to... Patient reports that his parents called the ballpoint pen cartridge tester on him twice; the ballpoint pen cartridge tester tried to corner him but he was too good and escaped the 1st time... Regarding manic symptoms: Patient seems to endorse that he has been getting little sleep but it is hard to tell; he reports he recently bought a lot of stuff from [employer]... enough to fix any BMW... -He denies any drug use. Denies any AVH; denies any SI or HI. To this technical proposal writer and some staff he denied alcohol use however family reported he had been drinking alcohol for some amount of time this week... Formulation/clinical reasoning: Patient presents with manic symptoms, pressured and disorganized speech, intrusive behaviors. Patient is a limited historian and it is not clear if he has ever had a manic episode before. He is ambivalent about trying Depakote as a mood stabilizer but said he would consider it if he could have Ativan 0.25 mg (refused higher doses offered by technical proposal writer). Initially place CIWA from collateral reports however patient says he is hardly drinking at all. Hypertensive crisis: Later on patient said he was seeing floaters. He was found to be hypertensive complaining of headache and ocular pain. Rapid response called and patient transferred to medical floor per medicine 04/25 discharge summary: Hospital Course: HP as per admitting provider. 28-year-old man with a history of Asperger's admitted to for rose marie, anxiety. He was noted to have elevated blood pressure readings since admission that were waxing and waning. Today patient's blood pressure was as high as 203/107 and he reported ?floaters? and headache. When asked again about these things he stated that they are both chronic. He was also noted to be tachycardic with heart rate in the 110's. Because of patient's rose marie was difficult to assess. I discussed with his mother and grandmother. They reported that the patient had moved to [place] in 2019 and got . They had not discussed a lot of his medical issues and were really unsure if he has been taking any medications for mental illness or not. His mother reported that he came back to [place] in January of 2024 and was in the process of filing for divorce. She reported that he has been drinking alcohol on a regular basis around that time but had quickly stopped within about a month. In March he started drinking a lot of espresso coffee and energy drinks. His mother and grandmother had not known at the time that the patient has been talking to an online therapist/provider and was started on Cymbalta 10 mg daily. He was also taking flexeril for body and neck pain. Over the last week and a half his mother and grandmother noted that he had not slept for more than 6-8 hours within that time he was perseverating, doing multiple things in the home without finishing. They filed a section 12 and he ended up in the emergency department. From there he went to and from he was transferred to the medical-surgical floor for management of hypertension. Hypertensive urgency. Resolved s/p satellite project site monitor continue clonidine Treated with IV Hydralazine for systolic blood pressure greater than 190 Encouraged sleep No caffeine diet Tachycardia Likely component of anxiety and baseline EKG showing sinus tach with normal range QTC Hypokalemia repleted Acute psychosis Transfer to M[facility] for psychiatric care Lorazepam p.r.n. 04/26 psych: pt was noted to be hyperactive on the unit, wearing a blue blazer and jeans, eagerly seeking out eye contact with . met with pt, who was focused on obtaining discharge from the hospital. pt reported his mood as i feel amazin g. informed pt of MD's diagnostic opinion that pt is presently in a manic state, pt denied he was in a manic state. MD further educated pt re appropriate treatments for his condition including lithium, depakote, and tegretol. pt referred to his lawyer probate and the police taking notice re events on M5, then stood and said, i think i'd feel safe if we had a business trainer in this room. he stated he would return in 5 minutes. MD waited 5 minutes but pt did not return. MD exited interview room and engaged in tasks to prepare to see another admission for about 10 minutes. MD went back out to the floor and saw pt avidly speaking on the telephone. interviewed second admission and did not hear from or see patient again, nor did engineer technical staff inform MD pt was looking to meet with him again. due to the interaction above a complete psychiatric interview was not completed. the history below was obtained largely from Dr. Jorgensen's admission note of 04/24. Past Psychiatric History: Psychiatric hospitalizations: Patient says many and that the last 1 was about 3 years ago but he does not know why Reports med history: -Cymbalta which he was on for years; stopped for 3 years while in [place] but restarted 3 weeks ago, just prior to this manic episode -reports trying most SSRIs/SNRIs -low-dose Seroquel which was not helpful -risperidone which was not helpful Medical Evaluation Reviewed: Yes [facility] Medical History (Updated 04/24/24 @ 18:33 by Eliseo Jorgensen MD) Autism Bipolar I disorder History of migraine headaches Asperger's disorder Family History: Deferred Social History: Patient was living in [place] for the past 3 years Now either getting or just and moved back to [place] about 3 weeks ago -worked for [employer] Substance History: Denies; other places say he drinks alcohol Trauma History: Deferred Precis: 04/26: clonidine 0.1 mg TID for HTN. VPA 1000 QHS for rose marie. ativan PRN agitation. 12 up tuesday. 2/14: pt refusing meds. schedule ativan, which he had been asking for, in hopes it will allow him to be better compliant with clonidine, as his BPs have been quite elevated. declines to meet with MD today. no change in presentation otherwise. making many calls of complaint to family and [facility] employees. 04/28: Continue current regimen and plans 04/29: Continue current regimen and plans. 04/30: Continue current regimen and plans. Added Flexeril 10 mg b.i.d. p.r.n. 05/01: stable. meds reviewed, reconciled, prescribed. discharged today upon expiry of 12b, as pt was not deemed committable. more calm than last week, less grandiose and pressured. had been taking medications over w/e. Time Spent with Patient Time attestation: Total time managing care of this patient today _40___ minutes. Discharge Plan Discharge Anticipated Discharge Date/Time: 05/01/24 11:30 Patient Disposition: Home, Self-Care Discharge Diagnosis: Rose Marie Referrals: Therapy & Psychiatry [Other] - 1 Week (*You can present to the clinic above, Tuesday through Tuesday during the hours of 10am and 12pm, in order to obtain outpatient mental health services. ) Therapy & Psychiatry [Other] - 1 Week (*You can present to the clinic above, Tue through Tuesday between the hours of 8am and 8pm, in order to obtain outpatient mental health providers. ) [facility] [Provider Group] - 1 Week (05-01-24 [facility] was added to patients chart. Please call [phone] to schedule your follow up appt within 7-10 days of discharge.) Discharge Medications: New cyclobenzaprine 10 mg Tablet 10 mg PO BID PRN (Reason: Pain, Moderate(Pain Scale 4-6)) 10 Days Qty: 20 0RF clonidine HCl 0.1 mg Tablet 0.1 mg PO TID 30 Days Qty: 90 0RF Protocol: Hold for SBP< HOLD for SBP < : 90 valproic acid 250 mg capsule 500 mg PO BID 30 Days Qty: 120 0RF trazodone 50 mg Tablet 50 mg PO BEDTIME PRN (Reason: Insomnia) 30 Days Qty: 30 0RF miconazole nitrate [Micro-Guard] 2 % Powder 1 appl topical BID 15 Days Qty: 85 0RF Protocol: Apply to: Apply to: affected areas of lower extremities lorazepam 1 mg Tablet 1 mg PO TID 30 Days Qty: 90 0RF Discontinued lorazepam 0.5 mg Tablet 0.25 mg PO Q4H PRN (Reason: any kind of anxiety) Qty: 0 0RF divalproex 500 mg Tablet Extended Release 24 Hr 500 mg PO BEDTIME Qty: 0 0RF clonidine HCl 0.1 mg Tablet 0.1 mg PO DAILY Qty: 30 0RF Protocol: Hold for SBP< HOLD for SBP < : 90 Discharge Orders: Discharge Order (Routine); Ordered 05/01/24 Ordered By: Richard Galarza Diet: Advance to usual diet Activity on Discharge: As tolerated Stand Alone Forms: Patient Portal Discharge page, Community Support Print Language: Vietnamese Care Plan Goals: remain safe and stable in the outpatient treatment setting Health Concerns: none Plan of Treatment: take medications as prescribed, attend appointments as scheduled Assessment: not at imminent risk of harm to self or others Discharge Date/Time: 05/01/24 11:00
== END 2024-05-01 11:00 | disposition home or self-care (01) | DRG 885 ==
PROVIDERS: Admitting Provider Internal Medicine; Visit Provider Psychiatry & Neurology Psychiatry
DX: F31.9 Bipolar disorder, unspecified (principal); I10 Essential (primary) hypertension; F84.0 Autistic disorder; Z79.899 Other long term (current) drug therapy

== ENCOUNTER → 2024-04-25 14:47 | Outpatient (BNV) | payer OTHER, SELFPAY | PROVIDERS: Admitting Provider Internal Medicine; Visit Provider Psychiatry & Neurology Psychiatry | DX: F31.13 Bipolar disorder, current episode manic without psychotic features, severe (principal); F84.0 Autistic disorder; I10 Essential (primary) hypertension | CPT/HCPCS: 90792 ==